=== PATIENT | male | born 1975 | race Caucasian/White ===

== ENCOUNTER 2016-08-23 10:02 | Emergency (ER) ==
[2016-08-23 10:15] VITALS: BP 141/85; TEMP 98.2; BMI 27.8
--- NOTE | 2016-08-23 10:18 | ED.PDOC ---
General ED Provider: Dr. ANDRADE PRESSLEY-ER Chief Complaint: Hand Pain/Injury Stated Complaint: he slipped in the shower last night--his finger is swollen bruised and painful Time Seen by Physician: 10:05 Mode of Arrival: Walk-In Information Source: Other Exam Limitations: Other Primary Care Provider: ZECHARIAH BABIN Nursing and Triage Documentation Reviewed and Agree: Yes Musculoskeletal Complaint Exam - Hand/Wrist Complaint/Exam Location of Pain: Reports: Right, Digit #3 Mechanism of Injury: Reports: Trauma Onset/Duration: 24hrs Symptoms Are: Still present Onset of Pain: Reports: Immediate Initial Severity: Mild Current Severity: Mild Location: Reports: Discrete (right middle finger) Character: Reports: Dull, Aching Aggravating: Reports: Movement Associated Signs and Symptoms: Reports: Swelling, Bruising. Denies: Redness, Fever, Weakness, Numbness, Tingling Hand/Wrist Findings: Present: Swelling, Ecchymosis Tenderness: Present: Phalanx Compartment Syndrome Risk Factors: Present: Pain Differential Diagnoses: Contusion, Closed Fracture, Sprain, Strain Review of Systems - Review Of Systems Constitutional: Reports: No symptoms Eyes: Reports: No symptoms Ears, Nose, Mouth, Throat: Reports: No symptoms Respiratory: Reports: No symptoms Cardiac: Reports: No symptoms GI: Reports: No symptoms : Reports: No symptoms Musculoskeletal: Reports: Joint pain, Muscle pain Skin: Reports: No symptoms Neurological: Reports: No symptoms Endocrine: Reports: No symptoms Hematologic/Lymphatic: Reports: No symptoms All Other Systems: Reviewed and Negative Past Medical History - Past Medical History Previously Healthy: No Endocrine: Reports: None Cardiovascular: Reports: None Respiratory: Reports: None Hematological: Reports: None Gastrointestinal: Reports: None Genitourinary: Reports: None Neuro/Psych: Reports: None Musculoskeletal: Reports: None Cancer: Reports: None Other Pertinent Past Medical History: MODERATE MR, BEHAVIORAL DISORDER,ADHD, HERNIA - Surgical History General Surgical History: Reports: Cholecystectomy - Family History Family History: Reports: Unknown - Social History Smoking Status: Never smoker Hx Substance Use: No Alcohol Screening: None - Immunizations Tetanus Shot up to Date: Yes Physical Exam - Physical Exam Appearance: Well-appearing Pain Distress: Mild Eyes: KIT, EOMI, Conjunctiva clear ENT: Ears normal, Nose normal, Oropharynx normal Neck: Supple Respiratory: Airway patent, Breath sounds clear, Breath sounds equal, Respirations nonlabored Cardiovascular: RRR, Pulses normal, No rub, No murmur GI/: Soft, Nontender, No masses, Bowel sounds normal, No Organomegaly Musculoskeletal: Limited ROM Skin: Warm, Dry, Normal color Neurological: Sensation intact, Motor intact, Reflexes intact, Cranial nerves intact, Alert, Oriented Psychiatric: Affect appropriate, Mood appropriate Interpretation - Radiology Interpretation Radiology Interpretation By: ED Physician Radiology Results: Negative Critical Care Note - Critical Care Note Total Time (mins): 0 Course - Course Orders, Labs, Meds: Orders Category Date Time Status FINGER(S) RIGHT MIN 2V Stat RADS 08/23/16 10:12 Taken Vital Signs: Temp Pulse Resp BP Pulse Ox 08/23/16 10:03 98.2 F 104 H 20 141/85 H 98 Departure - Departure Time of Disposition: 10:25 Disposition: HOME SELF-CARE Discharge Problem: Contusion of finger Qualifiers: Encounter type: initial encounter Finger: middle finger Damage to nail status: without damage Laterality: right Qualifier Code: (S60.031A) Contusion of right middle finger without damage to nail, initial encounter Instructions: Contusion in Adults (ED) Condition: Good Pt referred to PMD for follow-up: Yes Additional Instructions: stay in splint for 3 days--tylenol for pain--if remains painful and swollen-- see pmd--may need ortho referral Allergies/Adverse Reactions: Allergies No Known Allergies Allergy (Verified 08/23/16 10:11) Home Medications: Ambulatory Orders Acetaminophen [Tylenol] 650 mg PO Q4HR PRN 06/05/15 Benztropine Mesylate [Cogentin] 0.25 mg PO DAILY 06/05/15 Bupropion HCl [Bupropion Xl] 150 mg PO BID 06/05/15 Clonazepam 0.5 mg PO DIRECTED 06/05/15 Clonazepam 1 mg PO DAILY 06/05/15 Olanzapine [Zyprexa] 20 mg PO BEDTIME 06/05/15 Disposition Discussed With: Patient, Other (snf staff)
--- NOTE | 2016-08-23 10:35 | DI ---
Exam: Three x-rays of the right third digit. Comparison: None available. Reason for exam: Trauma. FINDINGS: There is an obliquely oriented, minimally displaced fracture of the right third middle ph alanx. This is best seen on the lateral image. The joint spaces are relatively well maintained. M ild amount of soft tissue swelling is seen adjacent to the fracture site. Impression: Obliquely oriented, minimally displaced right middle phalanx fracture.
== END 2016-08-23 10:32 | disposition home or self-care (01) ==
LOC: ED 10:02
DX: S60.031A Contusion of right middle finger without damage to nail, initial encounter (principal); W18.2XXA Fall in (into) shower or empty bathtub, initial encounter
CPT/HCPCS: 99282

== ENCOUNTER 2023-12-21 17:16 | Inpatient (IN) ==
[2023-12-21] MEDS ORDERED: LACTATED RINGERS 1,000 ML IV ONE (18:27)
--- NOTE | 2023-12-21 18:34 | ED.PDOC ---
General ED Provider: Dr. LARA BLAND MD Chief Complaint: Shortness of Air Stated Complaint: 48 yo WM from a [place] [facility] brought in by presidential support specialist for labored breathing. Staff have noticed some noisy breathing and wheezing today. No report of fever at home but temp was 100.5 in the ER. "He always have a cough" but worse. No vomiting or diarrhea. Some developmental delayed and have choked in the past. He is on a regular diet but "meat has to be chopped up". No sick contacts at the [place] [facility]. Unk if any COVID vaccination. Doesn't smoke Time Seen by Provider: 12/21/23 18:07 Mode of Arrival: Walk-In Information Source: Patient and Family Exam Limitations: Physical impairment Primary Care Provider: GOPI MONTOYA Referred to ED by: Other (Engineering Operator) Nursing and Triage Documentation Reviewed and Agree: Yes Does Patient Take Opioids?: No What is Opioid Naive?: *Opioid Naive implies the patient is not already taking opioids or not chronically receiving opioids on a daily basis. *PRN dosing is not "usually" associated with tolerance. *Patients are at higher risk of over-sedation and aspiration. What is Opioid Tolerant?: *Opioid Tolerance implies less than the expected response to an opioid. *Acquired tolerance is defined by the patient taking 60mg of oral morphine daily (or equianalgesic dose of another opioid) for 1 week or more. *Often associated with chronic pain. *May take more than usual dose to achieve desired pain control. Review of Systems Review Of Systems Constitutional: Reports Fever and Malaise Eyes: Reports No symptoms Ears, Nose, Mouth, Throat: Denies Ear discharge or Nose discharge Respiratory: Reports Cough, Shortness of Breath and Wheezing Cardiac: Denies Chest pain GI: Denies Abdominal pain : Denies Hematuria Musculoskeletal: Reports Back pain Skin: Reports No symptoms Neurological: Reports Cognitive dysfunction; Denies Emotional problems or Headache [facility] Medical History Adult ADHD F90.9 - Attention-deficit hyperactivity disorder, unspecified type (ICD-10) Disruptive behavior disorder F91.9 - Conduct disorder, unspecified (ICD-10) Surgical History H/O hernia repair Z98.890 - Other specified postprocedural states (ICD-10) Z87.19 - Personal history of other diseases of the digestive system (ICD-10) Physical Exam Physical Exam Appearance: Reports Ill-appearing, No pain distress and Well-nourished Ill-appearing: Moderate Pain Distress: None Eyes: Reports KIT and EOMI ENT: Reports Ears normal and Nose normal Neck: Supple Respiratory: Reports Airway patent, Breath sounds diminished, Airway obstructed and Wheezes Cardiovascular: Reports RRR, Pulses normal, No rub and No murmur GI/: Reports Soft, Nontender, No masses and Bowel sounds normal Musculoskeletal: Reports Normal strength, ROM intact and Edema Skin: Reports Warm, Dry and Normal color Neurological: Reports Sensation intact, Motor intact and Alert Interpretation Radiology Interpretation Radiology Interpretation By: Radiologist Exam Interpreted: CXR Xray Comments: pleural effusion and LLL pneumonia Course Course 12/21/23 18:40 12/21/23 18:40 Orders, Labs, Meds: Lab Review 12/21/23 12/21/23 18:40 19:18 WBC 15.12 H RBC 3.83 L Hgb 10.6 L Hct 33.8 L MCV 88.3 MCH 27.7 MCHC 31.4 L RDW Coeff of Tommy 13.9 Plt Count 506 H Immature Gran % (Auto) 1.0 Neut % (Auto) 74.8 Lymph % (Auto) 12.2 Crosby % (Auto) 11.0 H Eos % (Auto) 0.7 Baso % (Auto) 0.3 Neut # (Auto) 11.3 H Lymph # (Auto) 1.9 Crosby # (Auto) 1.7 Eos # (Auto) 0.1 Baso # (Auto) 0.1 Immature Gran # (Auto) 0.2 Sodium 134.1 L Potassium 4.23 Chloride 95.8 L Carbon Dioxide 32.2 H Anion Gap 10.33 BUN 11.9 Creatinine 0.61 Estimated GFR (MDRD) 142.00 BUN/Creatinine Ratio 19.50 Glucose 142.6 H Lactic Acid 0.74 Calcium 7.98 L Total Bilirubin 0.81 AST 175.2 H ALT 169.1 H Alkaline Phosphatase 165.9 H NT-Pro-B Natriuret Pep 550 H Total Protein 7.01 Albumin 3.58 Globulin 3.43 Albumin/Globulin Ratio 1.04 Procalcitonin 0.28 H Influ A Molecular Assay Negative by naat Influ B Molecular Assay Negative by naat SARS CoV-2 RNA Rapid JAYNA Negative Orders Category Date Time Status Saline Lock [ED IV/MEDIPORT/POWERPORT] .ONCE EMERGENCY 12/21/23 18:25 Active BLOOD CULTURE Stat LAB 12/21/23 18:40 Received CBC W/ AUTO DIFF Stat LAB 12/21/23 18:40 Completed CMP [COMPREHENSIVE METABOLIC PANEL] Stat LAB 12/21/23 18:40 Completed COVID [SARS COV-2 RNA RAPID JAYNA] Stat LAB 12/21/23 19:18 Completed FLU A & B MOLECULAR [FLU A/B MOLECULAR] Stat LAB 12/21/23 19:18 Completed LACTIC ACID Stat LAB 12/21/23 18:40 Completed NT-PROBNP Stat LAB 12/21/23 18:40 Completed PROCALCITONIN Stat LAB 12/21/23 18:40 Completed 0.9 % Sodium Chloride [Saline Flush] Meds 12/21/23 18:25 Active 1 syr IVF PRN PRN Ipratropium/Albuterol Neb [Duoneb] Meds 12/21/23 18:25 Discontinued 3 ml NEB ONCE ONE Methylprednisolone Sod Succ/Pf [Solu-Medrol 40 mg] Meds 12/21/23 18:27 Discontinued 80 mg IVP ONCE ONE Ringers Lactated Solution [Lactated Ringers] 1,000 ml Meds 12/21/23 18:27 Active IV 125 mls/hr CHEST, 1V AP ONLY Stat RADS 12/21/23 18:25 Completed Medications Generic Name Dose Route Start Last Admin Trade Name Freq PRN Reason Stop Dose Admin Lactated Ringer's 1,000 mls @ 125 mls/hr 12/21/23 18:27 Lactated Ringers IV 12/22/23 02:26 .Q8H ONE Sodium Chloride 1 syr 12/21/23 18:25 0.9% Sodium Chloride 10 Ml Disp.Syrin IVF PRN PRN To flush IV Discontinued Medications Generic Name Dose Route Start Last Admin Trade Name Freq PRN Reason Stop Dose Admin Albuterol/Ipratropium 3 ml 12/21/23 18:25 12/21/23 18:37 Ipratropium/Albuterol Vial.Neb NEB 12/21/23 18:26 3 ml ONCE ONE Administration Methylprednisolone Sodium Succinate 80 mg 12/21/23 18:27 12/21/23 18:57 Methylprednisolone Sod Succ/Pf 40 Mg/Ml Vial IVP 12/21/23 18:28 80 mg ONCE ONE Administration Vital Signs: Temp Pulse Resp BP Pulse Ox 12/21/23 18:03 100.5 F H 100 22 H 141/70 H 91 L Discharge Plan Discharge Patient Disposition: ADMITTED INPATIENT Discharge Problem: Pneumonia Did you review [place] LABOR AND DELIVERY for ALL controlled substances?: Not Applicable ED Provider: LARA BLAND Condition: Stable Physician Progress Note: Sat is 95% on oxygen, 2L?BNC and discussed with hospitalist Kristian and will admit
[2023-12-21] MEDS: DUONEB NEB ONE (18:37)
[2023-12-21 18:53] LABS: BASOPHILS # (AUTO) 0.1 K/uL (0-0.2); BASOPHILS % (AUTO) 0.3 % (0.0-3.0); EOSINOPHILS # (AUTO) 0.1 K/ul (0.0-0.7); EOSINOPHILS % (AUTO) 0.7 % (0.0-7.0); HEMATOCRIT 33.8 % (42.0-52.0); HEMOGLOBIN 10.6 g/dl (14.0-18.0); IMMATURE GRANULOCYTE # (AUTO) 0.2 (0.0-1.0); LYMPHOCYTES # (AUTO) 1.9 K/uL (0.60-3.4); LYMPHOCYTES % (AUTO) 12.2 (10.0-50.0); MEAN CORPUSCULAR HEMOGLOBIN 27.7 pg (27.0-31.0); MEAN CORPUSCULAR HGB CONC 31.4 (31.8-35.4); MEAN CORPUSCULAR VOLUME 88.3 fl (80.0-94.0); MONOCYTES # (AUTO) 1.7 K/uL (0.4-2.0); NEUTROPHILS # (AUTO) 11.3 K/ul (2.0-6.9); NEUTROPHILS % (AUTO) 74.8 % (42.2-75.2); PLATELET COUNT 506 10^3/uL (140-440); RDW COEFFICIENT OF VARIATION 13.9 % (11.6-14.8); RED BLOOD COUNT 3.83 10^6/ul (4.70-6.10); WHITE BLOOD COUNT 15.12 K/ul (4.2-10.2)
[2023-12-21] MEDS: SOLU-MEDROL 40 MG IVP ONE (18:57)
[2023-12-21 19:03] LABS: ALANINE AMINOTRANSFERASE 169.1 U/L (0-50); ALBUMIN 3.58 g/dL (3.5-5.0); ALKALINE PHOSPHATASE 165.9 U/L (38-126); ASPARTATE AMINO TRANSFERASE 175.2 U/L (17-59); BILIRUBIN,TOTAL 0.81 mg/dL (0.2-1.3); BLOOD UREA NITROGEN 11.9 mg/dL (9-20); CALCIUM 7.98 mg/dL (8.4-10.2); CARBON DIOXIDE 32.2 mmol/L (22-30.0); CHLORIDE 95.8 mmol/L (98-107); CREATININE 0.61 mg/dL (0.60-1.10); GLUCOSE 142.6 mg/dL (74-106); POTASSIUM 4.23 mmol/L (3.5-5.1); SODIUM 134.1 mmol/L (134.5-145); TOTAL PROTEIN 7.01 g/dL (6.3-8.2)
--- NOTE | 2023-12-21 19:38 | DI ---
EXAM: CHEST X-RAY ONE VIEW. HISTORY: Dyspnea. COMPARISON: 07/06/2022 chest x-ray. FINDINGS: There are increased patchy opacities present within both lung bases and blunting of the co stophrenic angles, left greater than right. The cardiac silhouette is enlarged. There is no pulmonary edema or pneumothorax. No change in the o sseous structures. IMPRESSION: Small right and small to moderate left pleural effusions with adjacent pneumonia. Cardiomegaly.
[2023-12-21 19:43] LABS: MOLECULAR FLU A NEGATIVE BY NAAT (NEGATIVE); MOLECULAR FLU B NEGATIVE BY NAAT (NEGATIVE); SARS COV-2 RNA RAPID NAAT NEGATIVE (NEGATIVE)
[2023-12-21] MEDS ORDERED: TYLENOL PO PRN (20:02)
[2023-12-21] MEDS ORDERED: ZOFRAN 4 MG/2 ML IVP PRN (20:02)
[2023-12-21] MEDS: ZOSYN 3.375 GM 3.375 GM in SODIUM CHLORIDE 100ML 100 ML IV ONE (20:05)
[2023-12-21] MEDS: ALBUTEROL 0.083% NEB NEB SCH (21:11)
[2023-12-21] MEDS: ZITHROMAX 500 MG in SODIUM CHLORIDE 250 ML IV SCH (22:22)
[2023-12-21] MEDS: KLONOPIN PO PRN (22:26)
[2023-12-21] MEDS: HALDOL PO SCH (22:26)
[2023-12-21] MEDS: ZYPREXA PO SCH (22:26)
[2023-12-21] MEDS: ZOCOR PO SCH (22:27)
[2023-12-21] MEDS: INDERAL PO SCH (22:27)
[2023-12-21 23:07] VITALS: BMI 28.3
[2023-12-22] MEDS: DUONEB NEB SCH (00:49)
[2023-12-22] MEDS: ZOSYN 4.5 GM 4.5 GM in SODIUM CHLORIDE 100ML 100 ML IV SCH ×2 (01:51→08:14)
[2023-12-22] MEDS: SOLU-MEDROL 40 MG IVP SCH (02:40)
[2023-12-22 05:49] LABS: BASOPHILS % (AUTO) 0.1 % (0.0-3.0); HEMATOCRIT 34.8 % (42.0-52.0); HEMOGLOBIN 10.7 g/dl (14.0-18.0); IMMATURE GRANULOCYTE # (AUTO) 0.1 (0.0-1.0); IMMATURE GRANULOCYTE % (AUTO) 0.9 % (0.0-5.0); LYMPHOCYTES # (AUTO) 0.9 K/uL (0.60-3.4); LYMPHOCYTES % (AUTO) 9.5 (10.0-50.0); MEAN CORPUSCULAR HEMOGLOBIN 27.4 pg (27.0-31.0); MEAN CORPUSCULAR HGB CONC 30.7 (31.8-35.4); MONOCYTES # (AUTO) 0.3 K/uL (0.4-2.0); MONOCYTES % (AUTO) 3.7 (0-10); NEUTROPHILS # (AUTO) 7.8 K/ul (2.0-6.9); NEUTROPHILS % (AUTO) 85.8 % (42.2-75.2); PLATELET COUNT 490 10^3/uL (140-440); RED BLOOD COUNT 3.91 10^6/ul (4.70-6.10); WHITE BLOOD COUNT 9.13 K/ul (4.2-10.2)
[2023-12-22 06:08] LABS: ALANINE AMINOTRANSFERASE 151.8 U/L (0-50); ALBUMIN 3.54 g/dL (3.5-5.0); ALKALINE PHOSPHATASE 152.7 U/L (38-126); ASPARTATE AMINO TRANSFERASE 95.4 U/L (17-59); BILIRUBIN,TOTAL 0.51 mg/dL (0.2-1.3); BLOOD UREA NITROGEN 10.6 mg/dL (9-20); CALCIUM 8.17 mg/dL (8.4-10.2); CARBON DIOXIDE 31.5 mmol/L (22-30.0); CHLORIDE 101.9 mmol/L (98-107); CREATININE 0.57 mg/dL (0.60-1.10); GLUCOSE 161.1 mg/dL (74-106); POTASSIUM 4.13 mmol/L (3.5-5.1); SODIUM 140.6 mmol/L (134.5-145); TOTAL PROTEIN 6.99 g/dL (6.3-8.2)
[2023-12-22] MEDS ORDERED: COGENTIN PO SCH (09:00)
[2023-12-22] MEDS: HALDOL PO SCH (09:19)
[2023-12-22] MEDS: KLONOPIN PO SCH (09:20)
[2023-12-22] MEDS: PAXIL PO SCH (09:20)
[2023-12-22] MEDS: LOVENOX SUBCUT SCH (09:21)
[2023-12-22] MEDS: NON-FORMULARY MEDICATION (Terbinafine Hcl 250 mg tablet) PO SCH (09:30)
--- NOTE | 2023-12-22 11:25 | PCM ---
Date of Service Date Seen by Provider: 12/22/23 Time Seen by Provider: 08:40 Admit Day/Time Admission Date: 12/21/23 Admission Time: 19:55 Reason for Admission Chief Complaint: PNEUMONIA Hospital Provider Hospital Provider: VIDHYA HOPE PA-C, [facility] [place] Primary Care Physician Primary Care Physician: GOPI MONTOYA History of Present Illness History of Present Illness: Patient is a 48 year old male from local [facility] with pmhx of aspiration, intellectual disability, hyperlipidemia who presents to ER with worsening SOB and cough. Caregiver states patient is an "A+ patient" and will tell you everything is fine when it isn't. But that he has been having a productive cough and noticeably SOB for last few days. He has hx of aspiration but she states he doesn't have issues swallowing, he just eats way too fast and has to be paced. He has choked 3 times in past due to this but not in past 6 months. In ER CXR showed bilateral pneumonia, wbc count elevated, procal mildly elevated, and patient requried 2L. He was given zosyn and azithromycin. He was admitted to med surg. Patient this morning is alert and interactive. Wearing 2L. Caregiver at bedside. Patient is very excited to be drinking his "sodey". He denies complaints. Case Discussed With Case Discussed With: Patient's case was discussed with the ER Physicians, Dr. Azevedo. [facility] Medical History Adult ADHD F90.9 - Attention-deficit hyperactivity disorder, unspecified type (ICD-10) Disruptive behavior disorder Mild MR F91.9 - Conduct disorder, unspecified (ICD-10) Surgical History H/O hernia repair Inguinal 12/17/14 Z98.890 - Other specified postprocedural states (ICD-10) Z87.19 - Personal history of other diseases of the digestive system (ICD-10) Family History FATHER Cancer Lung cancer Mother Cancer Allergies Allergies Allergy/AdvReac Type Severity Reaction Status Date / Time No Known Allergies Allergy Verified 07/06/22 19:12 Current Medications Home Medications acetaminophen 325 mg tablet (Tylenol) 650 mg PO Q4HR PRN Analgesia 06/05/15 [History Confirmed 12/21/23 Last Taken Unknown] olanzapine 20 mg tablet (Zyprexa) 20 mg PO BEDTIME 06/05/15 [History Confirmed 12/21/23 Last Taken Unknown] simvastatin 10 mg tablet 10 mg PO QHS 07/03/22 [History Confirmed 12/21/23 Last Taken Unknown] clonazepam 1 mg tablet 1 mg PO TID 12/21/23 [History Confirmed 12/21/23 Last Taken Unknown] divalproex 500 mg tablet,extended release 24 hr 500 mg PO BID 12/21/23 [History Confirmed 12/21/23 Last Taken Unknown] haloperidol 1 mg tablet 1 mg PO DAILY 12/21/23 [History Confirmed 12/21/23 Last Taken Unknown] haloperidol 2 mg tablet 2 mg PO BEDTIME 12/21/23 [History Confirmed 12/21/23 Last Taken Unknown] paroxetine HCl 30 mg tablet 30 mg PO DAILY 12/21/23 [History Confirmed 12/21/23 Last Taken Unknown] propranolol 10 mg tablet 10 mg PO 2XD 12/21/23 [History Confirmed 12/21/23 Last Taken Unknown] terbinafine HCl 250 mg tablet 250 mg PO DAILY 12/21/23 [History Confirmed 12/21/23 Last Taken Unknown] Home Acetaminophen (Acetaminophen 325 Mg Tablet) 650 mg PO Q4H PRN PRN Reason: Mild Pain Albuterol/Ipratropium (Ipratropium/Albuterol Vial.Neb) 3 ml NEB RTQ6H HARRY Last Admin: 12/22/23 11:25 Dose: 3 ml Clonazepam (Clonazepam 0.5 Mg Tablet) 1 mg PO TID HARRY Last Admin: 12/22/23 09:20 Dose: 1 mg Enoxaparin Sodium (Enoxaparin Sodium 40 Mg/0.4 Ml Syr) 40 mg SUBCUT DAILY [facility] Last Admin: 12/22/23 09:21 Dose: 40 mg Haloperidol (Haloperidol 0.5 Mg Tablet) 2 mg PO BEDTIME HARRY Last Admin: 12/21/23 22:26 Dose: 2 mg Haloperidol (Haloperidol 0.5 Mg Tablet) 1 mg PO DAILY [facility] Last Admin: 12/22/23 09:19 Dose: 1 mg Azithromycin 500 mg/ Sodium (Chloride) 250 mls @ 83 mls/hr IV BEDTIME HARRY Stop: 12/24/23 20:29 CEFTRIAXONE/D5W 1 GM PREMIX (Rocephin 1 Gm/50 Ml D5w) 1 gm in 50 mls @ 100 mls/hr IV DAILY HARRY Stop: 12/25/23 12:59 Last Admin: 12/22/23 13:58 Dose: 100 mls/hr Doxycycline Hyclate 100 mg/ (Sodium Chloride) 100 mls @ 50 mls/hr IV Q12HR HARRY Stop: 12/25/23 11:29 Last Admin: 12/22/23 11:35 Dose: 50 mls/hr Methylprednisolone Sodium Succinate (Methylprednisolone Sod Succ/Pf 40 Mg/Ml Vial) 40 mg IVP Q8H HARRY Last Admin: 12/22/23 12:03 Dose: 40 mg Non-Formulary Medication (Divalproex) 500 mg PO BID [facility] Last Admin: 12/22/23 09:18 Dose: 500 mg Non-Formulary Medication (Terbinafine Hcl) 250 mg PO DAILY [facility] Last Admin: 12/22/23 09:30 Dose: Not Given Olanzapine (Olanzapine 10 Mg Tablet) 20 mg PO BEDTIME [facility] Last Admin: 12/21/23 22:26 Dose: 20 mg Ondansetron HCl (Ondansetron Hcl/Pf 4 Mg/2 Ml Sdv) 4 mg IVP Q6H PRN PRN Reason: Nausea / Vomiting Paroxetine HCl (Paroxetine Hcl 20 Mg Tablet) 30 mg PO DAILY [facility] Last Admin: 12/22/23 09:20 Dose: 30 mg Propranolol HCl (Propranolol Hcl 20 Mg Tablet) 10 mg PO 2XD HARRY Last Admin: 12/22/23 09:28 Dose: 10 mg Simvastatin (Simvastatin 10 Mg Tablet) 10 mg PO BEDTIME [facility] Last Admin: 12/21/23 22:27 Dose: 10 mg Sodium Chloride (0.9% Sodium Chloride 10 Ml Disp.Syrin) 1 syr IVF Q8H HARRY Last Admin: 12/22/23 13:57 Dose: 1 syr Discontinued Medications Albuterol Sulfate (Albuterol Sulfate 0.083% Vial.Neb) 2.5 mg NEB RTQID [facility] Last Admin: 12/21/23 21:11 Dose: Not Given Albuterol/Ipratropium (Ipratropium/Albuterol Vial.Neb) 3 ml NEB ONCE ONE Stop: 12/21/23 18:26 Last Admin: 12/21/23 18:37 Dose: 3 ml Clonazepam (Clonazepam 0.5 Mg Tablet) 1 mg PO TID PRN PRN Reason: Anxiety Last Admin: 12/21/23 22:26 Dose: 1 mg Piperacillin Sod/Tazobactam (Sod 3.375 gm/ Sodium Chloride) 100 mls @ 200 mls/hr IV ONCE ONE Stop: 12/21/23 20:17 Last Admin: 12/21/23 20:05 Dose: 200 mls/hr Piperacillin Sod/Tazobactam (Sod 4.5 gm/ Sodium Chloride) 100 mls @ 200 mls/hr IV Q6H HARRY Stop: 12/25/23 01:59 Last Admin: 12/22/23 01:51 Dose: 200 mls/hr Azithromycin 500 mg/ Sodium (Chloride) 250 mls @ 83 mls/hr IV Q24H [facility] Stop: 12/24/23 20:29 Last Admin: 12/21/23 22:22 Dose: 83 mls/hr Piperacillin Sod/Tazobactam (Sod 4.5 gm/ Sodium Chloride) 100 mls @ 200 mls/hr IV Q6HR [facility] Stop: 12/25/23 01:59 Last Admin: 12/22/23 08:14 Dose: 200 mls/hr Methylprednisolone Sodium Succinate (Methylprednisolone Sod Succ/Pf 40 Mg/Ml Vial) 80 mg IVP ONCE ONE Stop: 12/21/23 18:28 Last Admin: 12/21/23 18:57 Dose: 80 mg Sodium Chloride (0.9% Sodium Chloride 10 Ml Disp.Syrin) 1 syr IVF PRN PRN PRN Reason: To flush IV Last Admin: 12/21/23 22:23 Dose: 1 syr Opioid Naive vs. Tolerant Does Patient Take Opioids?: No Is Patient Opioid Naive?: Yes What is Opioid Naive?: *Opioid Naive implies the patient is not already taking opioids or not chronically receiving opioids on a daily basis. *PRN dosing is not "usually" associated with tolerance. *Patients are at higher risk of over-sedation and aspiration. Is Patient Opioid Tolerant?: No What is Opioid Tolerant?: *Opioid Tolerance implies less than the expected response to an opioid. *Acquired tolerance is defined by the patient taking 60mg of oral morphine daily (or equianalgesic dose of another opioid) for 1 week or more. *Often associated with chronic pain. *May take more than usual dose to achieve desired pain control. Review of Systems Constitutional: Reports Fever Cardiovascular: Denies Chest pain or Edema Respiratory: Reports Cough and Shortness of air Gastrointestinal: Denies Nausea, Vomiting, Diarrhea, Abdominal pain or Melena Genitourinary: Denies Dysuria or Hematuria Dermatologic: Denies Rashes Physical examination Most Recent Vital Signs: Most Recent Vital Signs Temperature 98.3 F 12/22/23 10:00 Temperature Source Temporal Artery Scan 12/22/23 10:00 Temperature Source Temporal Artery Scan 12/21/23 18:03 Pulse Rate 101 H 12/22/23 10:00 Respiratory Rate 24 H 12/22/23 10:00 Blood Pressure 114/80 12/22/23 10:00 Blood Pressure Mean 91 12/22/23 10:00 Blood Pressure Right Arm 115/77 12/21/23 21:27 Blood Pressure Location Right Arm 12/22/23 10:00 Blood Pressure Position Supine 12/22/23 10:00 O2 Sat by Pulse Oximetry 94 L 12/22/23 10:20 Oxygen Delivery Method Nasal Cannula 12/22/23 10:20 Oxygen Flow Rate 2 12/22/23 10:20 Height 5 ft 5 in 12/21/23 21:27 Weight 77.2 kg 12/21/23 21:27 Telemetry Type Remote Telemetry 12/22/23 07:00 Telemetry Monitoring Continues 12/22/23 07:00 Telemetry Heart Rate 80 12/22/23 07:00 Telemetry SPO2 94 12/22/23 07:00 EKG TN Interval 0.15 12/22/23 07:00 EKG QRS Interval 0.07 12/22/23 07:00 Telemetry Strip Reading SR 12/22/23 07:00 Appearance: Positive No Apparent Distress and Other (+Alert, interactive ) Skin: Positive [place], Warm, Good Turgor and Good Color; Negative Rashes HEENT: Positive Normocephalic and Atraumatic Neck: Positive Supple and Midline Trachea Chest/Lungs: Positive Clear to Auscultation Bilaterally; Negative Rales, Rhonci or Wheezes Heart: Positive RRR GI/: Positive Soft, Nontender, Bowel Sounds Normal and No Distention Extremities: Negative Edema Neurological: Positive Cranial Nerves Intact and Alert Additional Findings: +intellectually delayed but very interactive and in good spirits. Labs This Visit Labs This Visit: Labs This Visit 12/21/23 12/21/23 12/22/23 18:40 19:18 05:38 WBC 15.12 H 9.13 D RBC 3.83 L 3.91 L Hgb 10.6 L 10.7 L Hct 33.8 L 34.8 L MCV 88.3 89.0 MCH 27.7 27.4 MCHC 31.4 L 30.7 L RDW Coeff of Tommy 13.9 14.0 Plt Count 506 H 490 H Immature Gran % (Auto) 1.0 0.9 Neut % (Auto) 74.8 85.8 H Lymph % (Auto) 12.2 9.5 L [place] % (Auto) 11.0 H 3.7 Eos % (Auto) 0.7 0.0 Baso % (Auto) 0.3 0.1 Neut # (Auto) 11.3 H 7.8 H Lymph # (Auto) 1.9 0.9 [place] # (Auto) 1.7 0.3 L Eos # (Auto) 0.1 0.0 Baso # (Auto) 0.1 0.0 Immature Gran # (Auto) 0.2 0.1 Sodium 134.1 L 140.6 Potassium 4.23 4.13 Chloride 95.8 L 101.9 Carbon Dioxide 32.2 H 31.5 H Anion Gap 10.33 11.33 BUN 11.9 10.6 Creatinine 0.61 0.57 L Estimated GFR (MDRD) 142.00 154.00 BUN/Creatinine Ratio 19.50 18.59 Glucose 142.6 H 161.1 H Lactic Acid 0.74 Calcium 7.98 L 8.17 L Total Bilirubin 0.81 0.51 AST 175.2 H 95.4 H D ALT 169.1 H 151.8 H Alkaline Phosphatase 165.9 H 152.7 H NT-Pro-B Natriuret Pep 550 H Total Protein 7.01 6.99 Albumin 3.58 3.54 Globulin 3.43 3.45 Albumin/Globulin Ratio 1.04 1.02 Procalcitonin 0.28 H Influ A Molecular Assay Negative by naat Influ B Molecular Assay Negative by naat SARS CoV-2 RNA Rapid JAYNA Negative Microbiology This Visit 12/21/23 18:40 Blood Blood Culture - Preliminary Imaging Imaging: EXAM: CHEST X-RAY ONE VIEW. HISTORY: Dyspnea. COMPARISON: 07/06/2022 chest x-ray. FINDINGS: There are increased patchy opacities present within both lung bases and blunting of the costophrenic angles, left greater than right. The cardiac silhouette is enlarged. There is no pulmonary edema or pneumothorax. No change in the osseous structures. IMPRESSION: Small right and small to moderate left pleural effusions with adj acent pneumonia. Cardiomegaly. Review Statement Review Statement: I have independently reviewed and interpreted the labs/EKGs/imaging that were ordered by the ER provider. I have reviewed all outside records that are available currently in our EMR including imaging/notes/labs from previous visits. Plan Plan: 1. Community acquired pneumonia, bilateral - Rocephin and doxy, solumedrol, duonebs, RT consult, wean O2 when able. Legionella, strep pneumo, and MRSA ordered. 1 blood culture positive for gram positive cocci, likely contaminant, will follow. 2. Acute hypoxic respiratory failure in setting of CAP - Plan as above 3. Behavior disorder - Cont home meds 4. Hyperlipidemia - Cont home meds 5. Pleural effusions - noted on CXR. Check echo. DVT Prophylaxis: Ambulation Time Spent: Greater than 80 minutes spent with patient, 50% of the time spent with this patient was devoted to counseling and coordination of care. [facility] minutes spent discussing advance care planning. Admit to: Inpatient Discussed Plan of Care with Dr. Josefina Mora. Medications Medication Orders: Medications Ordered Category Date Time Status 0.9 % Sodium Chloride [Saline Flush] Meds 12/22/23 05:00 Active 1 syr IVF Q8H Acetaminophen [Tylenol] Meds 12/21/23 20:02 Active 650 mg PO Q4H PRN Azithromycin Inj [Zithromax] 500 mg Meds 12/22/23 21:00 Active 0.9 % Sodium Chloride [Sodium Chloride] 250 ml IV BEDTIME Ceftriaxone/D5w 1 gm Premix [Rocephin 1 gm/50 ml D5w] Meds 12/22/23 13:00 Active 1 gm in 50 ml IV DAILY Clonazepam [Klonopin] Meds 12/22/23 09:00 Active 1 mg PO TID Doxycycline Hyclate Inj [Doxy-100] 100 mg Meds 12/22/23 11:30 Active 0.9 % Sodium Chloride [Sodium Chloride 100Ml] 100 ml IV Q12HR Enoxaparin Sodium [Lovenox] Meds 12/22/23 09:00 Active 40 mg SUBCUT DAILY Haloperidol [Haldol] Meds 12/22/23 09:00 Active 1 mg PO DAILY Haloperidol [Haldol] Meds 12/21/23 21:00 Active 2 mg PO BEDTIME Ipratropium/Albuterol Neb [Duoneb] Meds 12/22/23 00:00 Active 3 ml NEB RTQ6H Methylprednisolone Sod Succ/Pf [Solu-Medrol 40 mg] Meds 12/22/23 03:00 Active 40 mg IVP Q8H Olanzapine [Zyprexa] Meds 12/21/23 21:00 Active 20 mg PO BEDTIME Ondansetron HCl/Pf [Zofran 4 mg/2 ml] Meds 12/21/23 20:02 Active 4 mg IVP Q6H PRN Paroxetine HCl [Paxil] Meds 12/22/23 09:00 Active 30 mg PO DAILY Propranolol HCl [Inderal] Meds 12/21/23 21:00 Active 10 mg PO 2XD Simvastatin [Zocor] Meds 12/21/23 21:00 Active 10 mg PO BEDTIME divalproex Meds 12/21/23 21:00 Active 500 mg PO BID terbinafine HCl Meds 12/22/23 09:00 Active 250 mg PO DAILY
[2023-12-22] MEDS: DOXY-100 100 MG in SODIUM CHLORIDE 100ML 100 ML IV SCH (11:35)
[2023-12-22] MEDS: ROCEPHIN 1 GM/50 ML D5W 1 GM/50 ML BAG IV SCH (13:58)
[2023-12-22] MEDS ORDERED: ZITHROMAX 500 MG in SODIUM CHLORIDE 250 ML IV SCH (21:00)
[2023-12-23 05:40] LABS: BASOPHILS % (AUTO) 0.1 % (0.0-3.0); EOSINOPHILS % (AUTO) 0.1 % (0.0-7.0); HEMATOCRIT 36.6 % (42.0-52.0); IMMATURE GRANULOCYTE # (AUTO) 0.2 (0.0-1.0); LYMPHOCYTES # (AUTO) 1.5 K/uL (0.60-3.4); LYMPHOCYTES % (AUTO) 10.4 (10.0-50.0); MEAN CORPUSCULAR HEMOGLOBIN 27.6 pg (27.0-31.0); MEAN CORPUSCULAR HGB CONC 30.1 (31.8-35.4); MONOCYTES # (AUTO) 0.7 K/uL (0.4-2.0); MONOCYTES % (AUTO) 5.1 (0-10); NEUTROPHILS # (AUTO) 12.2 K/ul (2.0-6.9); NEUTROPHILS % (AUTO) 83.3 % (42.2-75.2); PLATELET COUNT 515 10^3/uL (140-440); RDW COEFFICIENT OF VARIATION 14.1 % (11.6-14.8); RED BLOOD COUNT 3.98 10^6/ul (4.70-6.10)
[2023-12-23 05:48] LABS: ALANINE AMINOTRANSFERASE 228.2 U/L (0-50); ALBUMIN 3.58 g/dL (3.5-5.0); ALKALINE PHOSPHATASE 142.8 U/L (38-126); ASPARTATE AMINO TRANSFERASE 122.1 U/L (17-59); BILIRUBIN,TOTAL 0.22 mg/dL (0.2-1.3); BLOOD UREA NITROGEN 11.8 mg/dL (9-20); CALCIUM 8.48 mg/dL (8.4-10.2); CARBON DIOXIDE 31.8 mmol/L (22-30.0); CHLORIDE 102.6 mmol/L (98-107); CREATININE 0.66 mg/dL (0.60-1.10); GLUCOSE 166.8 mg/dL (74-106); POTASSIUM 4.2 mmol/L (3.5-5.1); SODIUM 142.7 mmol/L (134.5-145); TOTAL PROTEIN 7.14 g/dL (6.3-8.2)
--- NOTE | 2023-12-23 10:49 | PCM.PROG ---
Date/Time Seen Date Seen by Provider: 12/23/23 Time Seen by Provider: 08:30 Provider [facility] Chief Complaint Chief Complaint: PNEUMONIA Subjective Subjective: Patient is at the bedside. Has showered and feeling better. Has no complaints. Caregiver at bedside updated on plan of care. Objective Appearance: Positive No Apparent Distress and Other (+alert, interactive ) Chest/Lungs: Positive Clear to Auscultation Bilaterally; Negative Rales, Rhonci or Wheezes Heart: Positive RRR GI/: Positive Soft, Nontender, Bowel Sounds Normal and No Distention Neurological: Positive Cranial Nerves Intact and Alert Vital Signs Vital Signs: Vital Signs: Last 24 Hours 12/22/23 13:00 12/22/23 14:00 12/22/23 14:50 Temperature 97.7 F Temperature Source Temporal Artery Scan Pulse Rate 88 Respiratory Rate 20 Blood Pressure 112/76 Blood Pressure Mean 88 Blood Pressure Location Left Arm Blood Pressure Position Supine O2 Sat by Pulse Oximetry 95 96 Oxygen Delivery Method Room Air Nasal Cannula Oxygen Flow Rate 2 Telemetry Type Remote Telemetry Telemetry Monitoring Continues Telemetry Heart Rate 91 Telemetry SPO2 94 EKG DC Interval 0.15 EKG QRS Interval 0.08 Telemetry Strip Reading SR 12/22/23 17:54 12/22/23 19:00 12/22/23 20:00 Temperature 97.0 F L Temperature Source Temporal Artery Scan Pulse Rate 91 Respiratory Rate 18 Blood Pressure 115/78 Blood Pressure Mean 90 Blood Pressure Location Right Arm Blood Pressure Position Supine O2 Sat by Pulse Oximetry 93 L Oxygen Delivery Method Room Air Nasal Cannula Oxygen Flow Rate 1 Telemetry Type Remote Telemetry Telemetry Monitoring Continues Telemetry Heart Rate 84 Telemetry SPO2 EKG DC Interval 0.14 EKG QRS Interval 0.08 Telemetry Strip Reading SR 12/22/23 20:00 12/22/23 21:57 12/23/23 01:00 Temperature 97 F L Temperature Source Temporal Artery Scan Pulse Rate 84 Respiratory Rate 18 18 Blood Pressure 101/67 Blood Pressure Mean 78 Blood Pressure Location Right Arm Blood Pressure Position Supine O2 Sat by Pulse Oximetry 93 L Oxygen Delivery Method Nasal Cannula Nasal Cannula Oxygen Flow Rate 2 Telemetry Type Remote Telemetry Telemetry Monitoring Continues Telemetry Heart Rate Telemetry SPO2 EKG DC Interval 0.15 EKG QRS Interval 0.09 Telemetry Strip Reading SR 12/23/23 02:00 12/23/23 04:55 12/23/23 05:23 Temperature 96.9 F L Temperature Source Temporal Artery Scan Pulse Rate 69 77 Respiratory Rate 18 Blood Pressure 111/71 Blood Pressure Mean 84 Blood Pressure Location Left Arm Blood Pressure Position Supine O2 Sat by Pulse Oximetry 90 L 91 L 96 Oxygen Delivery Method Nasal Cannula Nasal Cannula Nasal Cannula Oxygen Flow Rate 2 2 2 Telemetry Type Telemetry Monitoring Telemetry Heart Rate Telemetry SPO2 EKG DC Interval EKG QRS Interval Telemetry Strip Reading 12/23/23 07:00 12/23/23 08:00 12/23/23 10:00 Temperature 97.6 F Temperature Source Temporal Artery Scan Pulse Rate 94 Respiratory Rate 20 Blood Pressure 126/76 Blood Pressure Mean 92 Blood Pressure Location Right Arm Blood Pressure Position Supine O2 Sat by Pulse Oximetry 96 Oxygen Delivery Method Nasal Cannula Nasal Cannula Oxygen Flow Rate 2 2 Telemetry Type Remote Telemetry Telemetry Monitoring Continues Telemetry Heart Rate 64 Telemetry SPO2 91 L EKG DC Interval 0.14 EKG QRS Interval 0.06 Telemetry Strip Reading SR Lab Results Lab Results: Lab Results: Last 24 Hours 12/23/23 05:22 WBC 14.60 H D RBC 3.98 L Hgb 11.0 L Hct 36.6 L MCV 92.0 MCH 27.6 MCHC 30.1 L RDW Coeff of Tommy 14.1 Plt Count 515 H Immature Gran % (Auto) 1.0 Neut % (Auto) 83.3 H Lymph % (Auto) 10.4 [place] % (Auto) 5.1 Eos % (Auto) 0.1 Baso % (Auto) 0.1 Neut # (Auto) 12.2 H Lymph # (Auto) 1.5 [place] # (Auto) 0.7 Eos # (Auto) 0.0 Baso # (Auto) 0.0 Immature Gran # (Auto) 0.2 Sodium 142.7 Potassium 4.20 Chloride 102.6 Carbon Dioxide 31.8 H Anion Gap 12.50 BUN 11.8 Creatinine 0.66 Estimated GFR (MDRD) 130.00 BUN/Creatinine Ratio 17.87 Glucose 166.8 H Calcium 8.48 Total Bilirubin 0.22 AST 122.1 H D ALT 228.2 H D Alkaline Phosphatase 142.8 H Total Protein 7.14 Albumin 3.58 Globulin 3.56 Albumin/Globulin Ratio 1.00 Procalcitonin 0.23 H Additional Comments Additional Comments: I have independently reviewed and interpreted the labs/EKGs/imaging ordered duri ng this hospital stay. I have reviewed outside records that are available in our EMR that pertain to medical stay including imaging/notes/labs from previous visits. Active Medications Active Medications: Medications Generic Name Dose Route Start Last Admin Trade Name Freq PRN Reason Stop Dose Admin Acetaminophen 650 mg 12/21/23 20:02 Acetaminophen 325 Mg Tablet PO Q4H PRN Mild Pain Albuterol/Ipratropium 3 ml 12/22/23 00:00 12/23/23 04:56 Ipratropium/Albuterol Vial.Neb NEB 3 ml RTQ6H HARRY Administration Clonazepam 1 mg 12/22/23 09:00 12/23/23 09:37 Clonazepam 0.5 Mg Tablet PO 1 mg TID HARRY Administration Enoxaparin Sodium 40 mg 12/22/23 09:00 12/23/23 09:36 Enoxaparin Sodium 40 Mg/0.4 Ml Syr SUBCUT 40 mg DAILY HARRY Administration Haloperidol 2 mg 12/21/23 21:00 12/22/23 20:44 Haloperidol 0.5 Mg Tablet PO 2 mg BEDTIME HARRY Administration Haloperidol 1 mg 12/22/23 09:00 12/23/23 09:38 Haloperidol 0.5 Mg Tablet PO 1 mg DAILY HARRY Administration CEFTRIAXONE/D5W 1 GM PREMIX 1 gm in 50 mls @ 100 mls/hr 12/22/23 13:00 12/23/23 09:36 Rocephin 1 Gm/50 Ml D5w IV 12/25/23 12:59 100 mls/hr DAILY HARRY Administration Doxycycline Hyclate 100 mg/ 100 mls @ 50 mls/hr 12/22/23 11:30 12/22/23 20:47 Sodium Chloride IV 12/25/23 11:29 50 mls/hr Q12HR HARRY Administration Methylprednisolone Sodium Succinate 40 mg 12/22/23 03:00 12/23/23 03:55 Methylprednisolone Sod Succ/Pf 40 Mg/Ml Vial IVP 40 mg Q8H HARRY Administration Non-Formulary Medication 500 mg 12/21/23 21:00 12/23/23 09:32 Divalproex PO 500 mg BID HARRY Administration Non-Formulary Medication 250 mg 12/22/23 09:00 12/23/23 09:39 Terbinafine Hcl PO Not Given DAILY HARRY Olanzapine 20 mg 12/21/23 21:00 12/22/23 20:44 Olanzapine 10 Mg Tablet PO 20 mg BEDTIME HARRY Administration Ondansetron HCl 4 mg 12/21/23 20:02 Ondansetron Hcl/Pf 4 Mg/2 Ml Sdv IVP Q6H PRN Nausea / Vomiting Paroxetine HCl 30 mg 12/22/23 09:00 12/23/23 09:37 Paroxetine Hcl 20 Mg Tablet PO 30 mg DAILY HARRY Administration Propranolol HCl 10 mg 12/21/23 21:00 12/23/23 09:37 Propranolol Hcl 20 Mg Tablet PO 10 mg 2XD HARRY Administration Simvastatin 10 mg 12/21/23 21:00 12/22/23 20:45 Simvastatin 10 Mg Tablet PO 10 mg BEDTIME HARRY Administration Sodium Chloride 1 syr 12/22/23 05:00 12/23/23 05:01 0.9% Sodium Chloride 10 Ml Disp.Syrin IVF 1 syr Q8H HARRY Administration Plan Plan: 1. Community acquired pneumonia, bilateral - Rocephin and doxy, solumedrol, duonebs, RT consult, wean O2 when able. Legionella, strep pneumo, and MRSA ordered. 2/4 blood culture positive for gram positive cocci, likely contaminant, will follow. Repeat blood cultures ordered this morning. 2. Acute hypoxic respiratory failure in setting of CAP - Plan as above 3. Behavior disorder - Cont home meds 4. Hyperlipidemia - Cont home meds 5. Pleural effusions - noted on CXR. Check echo. 6. Transaminitis, mild - Check US RUQ, likely in setting of infection DVT Prophylaxis: Ambulation Dispo: Likely dc tomorrow Review Statement Review Statement: I have personally discussed and reviewed the patient's visit/currently labs/imaging/decision making with Dr. Mora, my supervising attending. Greater that 50 minutes spent with patient, 50% of the time spent with this patient was devoted to counseling and coordination of care.
--- NOTE | 2023-12-23 14:47 | ECHO2D ---
Date of Exam: 12/23/2023 Ordering Physician: KWESI BUSH/ PCP SHERRY Room #: 122 Reason for Echo: PLEURAL EFFUSIONS, CARDIOMEGALY, HYPERLIPIDEMIA M-Mode Normal Adult Results LV Dimensions Normal Adult Results AoV Opening excursions >1.6 >1.6 LVEDD-base- 3.5-5.8 4.5 Ao root dimensions 2.0-3.7 3.3 LVESD-base- 3.1-4.6 L. Atrium dimensions 1.9-3.8 4.4 Post. Wall thickness 0.8-1.1 1.2 IV septum (thickness) 0.7-1.2 1.2 Post. Wall excursion 0.72-1.3 NORMAL Septal motion NORMAL Systolic motion R. Ventricular cavity 1.5-2.0 NORMAL LVEF 60% 74% Paradoxical septal wall motion NORMAL 2-D : 2-D M Mode Echocardiogram was performed using apical four chamber and left parasternal long and short axis views. Mitral, tricuspid and aortic valves appear to be normal. Contractility of the left ventricle seems to be normal, so is the cavity size. Enlarged left atrial cavity size. Aortic root appears to be normal. There is no pericardial effusion. There is no thrombus noted in the left ventricle or left atrial cavity. M-MODE: MV: NORMAL AV: NORMAL TV: NORMAL PV: CHAMBER SIZE: ENLARGED LEFT ATRIAL CAVITY WALL MOTION: NORMAL PERICARDIUM: NORMAL INTERPRETATION: 1. BORDERLINE LEFT VENTRICLE HYPERTROPHY WITH ENLARGED LEFT ATRIAL CAVITY 2. NORMAL VALVES 3. NORMAL LEFT VENTRICLE SIZE AND LEFT VENTRICLE CONTRACTILITY MTDD
[2023-12-24 05:16] LABS: BASOPHILS % (AUTO) 0.2 % (0.0-3.0); EOSINOPHILS # (AUTO) 0.1 K/ul (0.0-0.7); EOSINOPHILS % (AUTO) 0.4 % (0.0-7.0); HEMATOCRIT 37.1 % (42.0-52.0); IMMATURE GRANULOCYTE # (AUTO) 0.2 (0.0-1.0); IMMATURE GRANULOCYTE % (AUTO) 1.2 % (0.0-5.0); LYMPHOCYTES # (AUTO) 3.6 K/uL (0.60-3.4); LYMPHOCYTES % (AUTO) 28.8 (10.0-50.0); MEAN CORPUSCULAR HEMOGLOBIN 27.7 pg (27.0-31.0); MEAN CORPUSCULAR HGB CONC 29.6 (31.8-35.4); MEAN CORPUSCULAR VOLUME 93.5 fl (80.0-94.0); MONOCYTES # (AUTO) 0.9 K/uL (0.4-2.0); MONOCYTES % (AUTO) 7.1 (0-10); NEUTROPHILS # (AUTO) 7.7 K/ul (2.0-6.9); NEUTROPHILS % (AUTO) 62.3 % (42.2-75.2); PLATELET COUNT 504 10^3/uL (140-440); RDW COEFFICIENT OF VARIATION 14.2 % (11.6-14.8); RED BLOOD COUNT 3.97 10^6/ul (4.70-6.10); WHITE BLOOD COUNT 12.39 K/ul (4.2-10.2)
[2023-12-24 05:32] LABS: ALANINE AMINOTRANSFERASE 196.3 U/L (0-50); ALBUMIN 3.14 g/dL (3.5-5.0); ALKALINE PHOSPHATASE 110.9 U/L (38-126); ASPARTATE AMINO TRANSFERASE 85.2 U/L (17-59); BILIRUBIN,TOTAL 0.15 mg/dL (0.2-1.3); BLOOD UREA NITROGEN 14.5 mg/dL (9-20); CALCIUM 8.11 mg/dL (8.4-10.2); CARBON DIOXIDE 34.1 mmol/L (22-30.0); CHLORIDE 105.3 mmol/L (98-107); CREATININE 0.72 mg/dL (0.60-1.10); GLUCOSE 126.4 mg/dL (74-106); POTASSIUM 3.78 mmol/L (3.5-5.1); SODIUM 144.6 mmol/L (134.5-145); TOTAL PROTEIN 6.37 g/dL (6.3-8.2)
--- NOTE | 2023-12-24 09:23 | US ---
EXAM: ABDOMINAL ULTRASOUND LIMITED HISTORY: Elevated liver enzymes COMPARISON: None TECHNIQUE: Sonographic and limited Doppler evaluation of the right upper quadrant was performed. FINDINGS: The liver is increased in echogenicity and measures 11.4 cm. The portal vein is patent. The gallbladder demonstrates no stones or sludge. The gallbladder wall measures 0.2 cm in thickness. Common bile duct is unremarkable and measures 0.4 cm in diameter. The pancreas is unremarkable in appearance. Right kidney is normal in appearance without obstructive uropathy. IMPRESSION: Increased echogenicity of the liver suggestive of hepatic steatosis.
--- NOTE | 2023-12-24 10:39 | DCSUM ---
Admission Date Admission Date: 12/21/23 Discharge Date Discharge Date: 12/24/23 Admission Diagnosis Admission Diagnosis: 1. Community acquired pneumonia, bilateral 2. Acute hypoxic respiratory failure in setting of CAP Discharge Diagnosis Discharge Diagnosis: 1. Community acquired pneumonia, bilateral 2. Acute hypoxic respiratory failure in setting of CAP - resolved 3. Behavior disorder - Cont home meds 4. Hyperlipidemia - Cont home meds 5. Pleural effusions 6. Transaminitis, mild - improved Hospital Provider Hospital Provider: VIDHYA HOPE [facility]-C, [facility] Primary Care Physician Primary Care Physician: GOPI MONTOYA Summary of History and Physical Summary of History and Physical: Patient is a 48 year old male from local [facility] home with pmhx of aspiration, intellectual disability, hyperlipidemia who presents to ER with worsening SOB and cough. Caregiver states patient is an "A+ patient" and will tell you everything is fine when it isn't. But that he has been having a productive cough and noticeably SOB for last few days. He has hx of aspiration but she states he doesn't have issues swallowing, he just eats way too fast and has to be paced. He has choked 3 times in past due to this but not in past 6 months. In ER CXR showed bilateral pneumonia, wbc count elevated, procal mildly elevated, and sandra ent requried 2L. He was given zosyn and azithromycin. He was admitted to med surg. Patient this morning is alert and interactive. Wearing 2L. Caregiver at bedside. Patient is very excited to be drinking his "sodey". He denies complaints. Hospital Course Subjective: Patient treated with rocephin and doxy and steroids. Steroids stopped on 12/22. Patient overall did very well. He was weaned to RA. He is at his baseline. His initial blood cultures grew staph haemolyticus in 2 bottles, deemed a contaminant. Repeat blood cultures all negative so far. Liver US done due to mild elevated liver enzymes, which have improved. Showed fatty liver otherwise unremarkable. Echo performed due to pleural effusions on CXR, reportedly unremarkable. Will discharge on augmentin and doxy for 2 more days. Caregiver at bedside. Appearance: Pleasant, No Apparent Distress and Alert HEENT: MMM CVS: No Murmur Abdomen: Soft, Non-Tender and No Distention Respiratory: No Accessory Muscle Use Extremities: No Edema Vital Signs: Most Recent Vital Signs Temperature 97.2 F L 12/24/23 05:22 Temperature Source Temporal Artery Scan 12/24/23 05:22 Temperature Source Temporal Artery Scan 12/21/23 18:03 Pulse Rate 62 12/24/23 05:22 Respiratory Rate 18 12/24/23 05:22 Blood Pressure 114/67 12/24/23 05:22 Blood Pressure Mean 82 12/24/23 05:22 Blood Pressure Right Arm 115/77 12/21/23 21:27 Blood Pressure Location Right Arm 12/24/23 05:22 Blood Pressure Position Supine 12/24/23 05:22 O2 Sat by Pulse Oximetry 96 12/24/23 05:22 Oxygen Delivery Method Room Air 12/24/23 05:22 Oxygen Flow Rate 1 12/24/23 05:01 Height 5 ft 5 in 12/21/23 21:27 Weight 77.2 kg 12/21/23 21:27 Telemetry Type Remote Telemetry 12/24/23 07:00 Telemetry Monitoring Started 12/24/23 07:00 Telemetry Heart Rate 67 12/24/23 07:00 Telemetry SPO2 94 12/24/23 07:00 EKG VA Interval 0.13 12/24/23 07:00 EKG QRS Interval 0.10 12/24/23 07:00 Telemetry Strip Reading NSR 12/24/23 07:00 Imaging: EXAM: CHEST X-RAY ONE VIEW. HISTORY: Dyspnea. COMPARISON: 07/06/2022 chest x-ray. FINDINGS: There are increased patchy opacities present within both lung bases and blunting of the costophrenic angles, left greater than right. The cardiac silhouette is enlarged. There is no pulmonary edema or pneumothorax. No change in the osseous structures. IMPRESSION: Small right and small to moderate left pleural effusions with adjacent pneumonia. Cardiomegaly. EXAM: ABDOMINAL ULTRASOUND LIMITED HISTORY: Elevated liver enzymes COMPARISON: None TECHNIQUE: Sonographic and limited Doppler evaluation of the right upper quadrant was performed. FINDINGS: The liver is increased in echogenicity and measures 11.4 cm. The portal vein is patent. The gallbladder demonstrates no stones or sludge. The gallbladder wall measures 0.2 cm in thickness. Common bile duct is unremarkable and measures 0.4 cm in diameter. The pancreas is unremarkable in appearance. Right kidney is normal in appearance without obstructive uropathy. IMPRESSION: Increased echogenicity of the liver suggestive of hepatic steatosis. Date of Exam: 12/23/2023Ordering Physician: KWESI BUSH/ PCP SHERRY Room #: 122 Reason for Echo: PLEURAL EFFUSIONS, CARDIOMEGALY, HYPERLIPIDEMIA M-Mode Normal Adult Results LV Dimensions Normal Adult Results AoV Opening excursions >1.6 >1.6 LVEDD-base- 3.5-5.8 4.5 Ao root dimensions 2.0-3.7 3.3 LVESD-base- 3.1-4.6 L. Atrium dimensions 1.9-3.8 4.4 Post. Wall thickness 0.8-1.1 1.2 IV septum (thickness) 0.7-1.2 1.2 Post. Wall excursion 0.72-1.3 NORMAL Septal motion NORMAL Systolic motion R. Ventricular cavity 1.5-2.0 NORMAL LVEF 60% 74% Paradoxical septal wall motion NORMAL 2-D : 2-D M Mode Echocardiogram was performed using apical four chamber and left parasternal long and short axis views. Mitral, tricuspid and aortic valves appear to be normal. Contractility of the left ventricle seems to be normal, so is the cavity size. Enlarged left atrial cavity size. Aortic root appears to be normal. There is no pericardial effusion. There is no thrombus noted in the left ventricle or left atrial cavity. M-MODE: MV: NORMAL AV: NORMAL TV: NORMAL PV: CHAMBER SIZE: ENLARGED LEFT ATRIAL CAVITY WALL MOTION: NORMAL PERICARDIUM: NORMAL INTERPRETATION: 1. BORDERLINE LEFT VENTRICLE HYPERTROPHY WITH ENLARGED LEFT ATRIAL CAVITY 2. NORMAL VALVES 3. NORMAL LEFT VENTRICLE SIZE AND LEFT VENTRICLE CONTRACTILITY Lab Results Last 24 Hours: 12/24/23 05:12 WBC 12.39 H RBC 3.97 L Hgb 11.0 L Hct 37.1 L MCV 93.5 MCH 27.7 MCHC 29.6 L RDW Coeff of Tommy 14.2 Plt Count 504 H Immature Gran % (Auto) 1.2 Neut % (Auto) 62.3 Lymph % (Auto) 28.8 Taylor % (Auto) 7.1 Eos % (Auto) 0.4 Baso % (Auto) 0.2 Neut # (Auto) 7.7 H Lymph # (Auto) 3.6 H Taylor # (Auto) 0.9 Eos # (Auto) 0.1 Baso # (Auto) 0.0 Immature Gran # (Auto) 0.2 Sodium 144.6 Potassium 3.78 Chloride 105.3 Carbon Dioxide 34.1 H Anion Gap 8.98 BUN 14.5 Creatinine 0.72 Estimated GFR (MDRD) 118.00 BUN/Creatinine Ratio 20.13 Glucose 126.4 H Calcium 8.11 L Total Bilirubin 0.15 L AST 85.2 H D ALT 196.3 H D Alkaline Phosphatase 110.9 D Total Protein 6.37 Albumin 3.14 L Globulin 3.23 Albumin/Globulin Ratio 0.97 Procalcitonin 0.17 H Discharge Instructions Discharge Planning: Discharge Planning > [address] Josefina Mora. Discharge Medications: Medications at Discharge (Home Meds & RX) Discharge Plan Discharge Discharge Orders: Discharge Patient (ONCE); Ordered 12/24/23 Ordered By: VIDHYA HOPE Activity Restrictions/Additional Instructions: DISCHARGE TO HOME DX: PNEUMONIA FINISH ANTIBIOTICS ACTIVITY: TOLERATED FOLLOW FACILITY FLUID INTAKE LIMITATIONS Instructions: Community Acquired Pneumonia (DC) Patient Disposition: HOME SELF-CARE Prescriptions: New doxycycline hyclate 100 mg capsule 100 mg PO BID 2 Days Qty: 4 0RF Rx Instructions: Start 12/24 amoxicillin-pot clavulanate 875-125 mg tablet 1 tab PO BID 2 Days Qty: 4 0RF Rx Instructions: start 12/24 Continued acetaminophen [Tylenol] 325 MG tablet 650 mg PO Q4HR PRN (Reason: Analgesia) olanzapine [Zyprexa] 20 MG tablet 20 mg PO BEDTIME paroxetine HCl 30 mg tablet 30 mg PO DAILY divalproex 500 mg tablet extended release 24 hr 500 mg PO BID haloperidol 2 mg tablet 2 mg PO BEDTIME clonazepam 1 mg tablet 1 mg PO TID propranolol 10 mg tablet 10 mg PO 2XD haloperidol 1 mg tablet 1 mg PO DAILY terbinafine HCl 250 mg tablet 250 mg PO DAILY simvastatin 10 mg tablet 10 mg PO QHS Did you review [place] [employer]ING for ALL controlled substances?: Not Applicable Discussed opioids are addictive and Narcan is available by prescription or from pharmacy.: No Condition: Stable Referrals: GOPI MONTOYA [Primary Care Provider] - 12/30/23 9:15 am
[2023-12-24 11:34] VITALS: BP 104/69; PULSE 83; RESP 18; TEMP 96.8
[2023-12-24 14:18] LABS: SPECIMEN SOURCE Urine (.); STEP PNEUMO ORGANISM ID Not indicated. (.); STREP PNEUMO AG Negative (Negative); STREP PNEUMO BODY FLUID CULT Not indicated. (.)
[2023-12-31 14:17] LABS: AEROBIC + ANAEROB SUSC Final report (.); AEROBIC + ANAEROB SUSC RES 1 Actinomyces neuii (.); BACT ID RESULT 1 Actinomyces neuii (.); BACTERIA IDENTIFICATION Final report (.)
== END 2023-12-24 13:15 | disposition home or self-care (01) | DRG 193 ==
LOC: ED 17:16 → MEDSURG B 20:59
PROVIDERS: ADMIT Hospitalist; ATTEND Physician Assistant
DX: J18.9 Pneumonia, unspecified organism; R06.02 Shortness of breath; J90 Pleural effusion, not elsewhere classified; M54.9 Dorsalgia, unspecified; E78.5 Hyperlipidemia, unspecified; J96.01 Acute respiratory failure with hypoxia; R05.9 Cough, unspecified; R74.01 Elevation of levels of liver transaminase levels; R06.2 Wheezing; F69 Unspecified disorder of adult personality and behavior; R62.50 Unspecified lack of expected normal physiological development in childhood

== ENCOUNTER 2023-12-27 09:28 | Inpatient (IN) ==
[2023-12-27] MEDS: DUONEB NEB ONE ×2 (09:53→10:39)
--- NOTE | 2023-12-27 09:58 | ED.PDOC ---
General ED Provider: Dr. LARA BLAND MD Chief Complaint: Respiratory Complaint Stated Complaint: 48 yo WM who resides at [facility] and was just DC 3 days ago after a few days of hospitalization for CAP in both lungs. He had told staff of some chest pain this AM and VS taken showed sat of 95% on RA, 140/80, temp of 98 and fell on the floor when staff when outside to call someone. He denied any injuries from the fall. He have a slight cough and was wheezing after the fall. No reports of any fever. Normally ambulates well. Hx of choking from eating too fast and had choking episodes in the past. He has a history of developmental delayed, behavior problem, hyperlipidemia, previous aspiration and CAP. Recent admit showed he had some pleural effusion and ECHO reported unremarkable. Doesn't smoke Time Seen by Provider: 12/27/23 09:40 Mode of Arrival: Ambulance Information Source: Patient and Other ([place] staff) Exam Limitations: Physical impairment and Language barrier Primary Care Provider: GOPI MONTOYA Referred to ED by: Other ([facility] ) Seen Within Last 72 Hours for Same Complaint By: In-Patient Facility Nursing and Triage Documentation Reviewed and Agree: Yes Does Patient Take Opioids?: No What is Opioid Naive?: *Opioid Naive implies the patient is not already taking opioids or not chronically receiving opioids on a daily basis. *PRN dosing is not "usually" associated with tolerance. *Patients are at higher risk of over-sedation and aspiration. What is Opioid Tolerant?: *Opioid Tolerance implies less than the expected response to an opioid. *Acquired tolerance is defined by the patient taking 60mg of oral morphine daily (or equianalgesic dose of another opioid) for 1 week or more. *Often associated with chronic pain. *May take more than usual dose to achieve desired pain control. Review of Systems Review Of Systems Constitutional: Denies Chills or Fever Eyes: Reports No symptoms Ears, Nose, Mouth, Throat: Reports Nose discharge Respiratory: Reports Cough, Shortness of Breath and Wheezing Cardiac: Reports Chest pain GI: Denies Abdominal pain, Diarrhea or Vomiting : Denies Dysuria or Hematuria Musculoskeletal: Denies Back pain, Joint pain or Joint swelling Skin: Reports No symptoms Neurological: Reports Cognitive dysfunction; Denies Anxiety, Depressed or Headache [facility] History Adult ADHD F90.9 - Attention-deficit hyperactivity disorder, unspecified type (ICD-10) Disruptive behavior disorder Mild MR F91.9 - Conduct disorder, unspecified (ICD-10) Family History FATHER Cancer Lung cancer Mother Cancer Surgical History H/O hernia repair Inguinal 12/17/14 Z98.890 - Other specified postprocedural states (ICD-10) Z87.19 - Personal history of other diseases of the digestive system (ICD-10) Physical Exam Physical Exam Appearance: Reports No pain distress and Well-nourished Ill-appearing: Mild Pain Distress: None Eyes: Reports EOMI ENT: Reports Nose normal and Oropharynx normal Neck: Nonsupple Respiratory: Reports Airway patent, Breath sounds diminished, Crackles and Wheezes (Minimal ) Cardiovascular: Reports RRR, Pulses normal, No rub and No murmur GI/: Reports Soft, Nontender, No masses and Bowel sounds normal Musculoskeletal: Reports Normal strength, ROM intact, No edema and No calf tenderness Skin: Reports Dry, Normal color and Pale Neurological: Reports Motor intact and Alert; Denies Focal Deficit Psychiatric: Reports Mood appropriate; Denies Anxious or Depressed Course Course 12/27/23 10:00 12/27/23 10:00 Orders, Labs, Meds: Lab Review 12/27/23 12/27/23 10:00 10:10 WBC 28.01 H D RBC 4.08 L Hgb 11.6 L Hct 36.6 L MCV 89.7 MCH 28.4 MCHC 31.7 L RDW Coeff of Tommy 14.4 Plt Count 481 H Immature Gran % (Auto) 3.9 Neut % (Auto) 81.6 H Lymph % (Auto) 5.7 L Sampson % (Auto) 8.6 Eos % (Auto) 0.1 Baso % (Auto) 0.1 Neut # (Auto) 22.8 H Lymph # (Auto) 1.6 Sampson # (Auto) 2.4 H Eos # (Auto) 0.0 Baso # (Auto) 0.0 Immature Gran # (Auto) 1.1 H Sodium 132.6 L Potassium 4.47 Chloride 99.5 Carbon Dioxide 23.9 Anion Gap 13.67 BUN 14.9 Creatinine 0.80 Estimated GFR (MDRD) 104.00 BUN/Creatinine Ratio 18.62 Glucose 137.9 H Lactic Acid 1.78 Calcium 8.04 L Magnesium 2.42 H Total Bilirubin 1.07 AST 28.2 ALT 65.2 H Alkaline Phosphatase 99.0 Troponin I < 0.012 NT-Pro-B Natriuret Pep 564 H Total Protein 6.86 Albumin 3.54 Globulin 3.32 Albumin/Globulin Ratio 1.06 Procalcitonin 0.35 H SARS CoV-2 RNA Rapid JAYNA Negative Orders Category Date Time Status ADMIT PATIENT INPATIENT .TO MEDSURG (NON-MONITORED ADMISSION 12/27/23 12:16 Ordered BED) EKG-(ED ONLY) Stat CARDIO 12/27/23 09:49 Completed NEBULIZER TREATMENT Stat CARDIO 12/27/23 10:42 Completed NPO REMINDER: IMAGING ONCE CARE 12/27/23 11:03 Active Saline Lock [ED IV/MEDIPORT/POWERPORT] .ONCE EMERGENCY 12/27/23 09:50 Active BLOOD CULTURE (ED ONLY) Stat LAB 12/27/23 10:58 Received CBC W/ AUTO DIFF Stat LAB 12/27/23 10:00 Completed CMP [COMPREHENSIVE METABOLIC PANEL] Stat LAB 12/27/23 10:00 Completed COVID [SARS COV-2 RNA RAPID JAYNA] Stat LAB 12/27/23 10:10 Completed LACTIC ACID Stat LAB 12/27/23 10:00 Completed MAGNESIUM Stat LAB 12/27/23 10:00 Completed NT-PROBNP(ED) Stat LAB 12/27/23 10:00 Completed PROCALCITONIN Stat LAB 12/27/23 10:00 Completed TROPONIN I Stat LAB 12/27/23 10:00 Completed 0.9 % Sodium Chloride [Saline Flush] Meds 12/27/23 09:50 Active 1 syr IVF PRN PRN Albuterol Sulfate 0.083% Neb [Albuterol 0.083% Neb] Meds 12/27/23 10:42 Active 5 mg NEB Q1-2H PRN Iohexol [Omnipaque 350 mg/ml 100Ml] Meds 12/27/23 11:17 Discontinued 100 ml IVP ONCE ONE Ipratropium/Albuterol Neb [Duoneb] Meds 12/27/23 09:51 Discontinued 3 ml NEB .STK-MED ONE Ipratropium/Albuterol Neb [Duoneb] Meds 12/27/23 09:50 Discontinued 3 ml NEB ONCE ONE Levofloxacin/D5w [Levaquin 500 mg/100 ml D5w] Meds 12/27/23 10:34 Discontinued 500 mg in 100 ml IV ONCE CHEST, 1V AP ONLY Stat RADS 12/27/23 09:[address] CHEST W/CONTRAST Stat RADS 12/27/23 11:03 Completed Medications Generic Name Dose Route Start Last Admin Trade Name Freq PRN Reason Stop Dose Admin Albuterol Sulfate 5 mg 12/27/23 10:42 12/27/23 10:52 Albuterol Sulfate 0.083% Vial.Neb NEB 5 mg Q1-2H PRN Administration Asthma Sodium Chloride 1 syr 12/27/23 09:50 0.9% Sodium Chloride 10 Ml Disp.Syrin IVF PRN PRN To flush IV Discontinued Medications Generic Name Dose Route Start Last Admin Trade Name Freq PRN Reason Stop Dose Admin Albuterol/Ipratropium 3 ml 12/27/23 09:50 12/27/23 09:53 Ipratropium/Albuterol Vial.Neb NEB 12/27/23 09:51 3 ml ONCE ONE Administration Levofloxacin/Dextrose 500 mg in 100 mls @ 100 mls/hr 12/27/23 10:34 Levaquin 500 Mg/100 Ml D5w IV 12/27/23 11:33 ONCE ONE Iohexol 100 ml 12/27/23 11:17 12/27/23 11:25 Iohexol 350 Mg/Ml 100ml IVP 12/27/23 11:18 100 ml ONCE ONE Administration Vital Signs: Temp Pulse Resp BP Pulse Ox 12/27/23 09:45 101.8 F H 114 H 24 H 115/62 95 Discharge Plan Discharge Patient Disposition: ADMITTED INPATIENT Discharge Problem: Dyspnea and respiratory abnormalities Did you review [place] [employer]LL[place] NURSE for ALL controlled substances?: Not Applicable ED Provider: LARA BLAND Condition: Fair Physician Progress Note: Discussed with Jean Carlos Maldonado and she wanted a CT scan of chest. This was done and relayed to her. Will Full Admit. Breathing has improved and not toxic. He wants to go home.
[2023-12-27 10:28] LABS: BASOPHILS % (AUTO) 0.1 % (0.0-3.0); EOSINOPHILS % (AUTO) 0.1 % (0.0-7.0); HEMATOCRIT 36.6 % (42.0-52.0); HEMOGLOBIN 11.6 g/dl (14.0-18.0); IMMATURE GRANULOCYTE # (AUTO) 1.1 (0.0-1.0); IMMATURE GRANULOCYTE % (AUTO) 3.9 % (0.0-5.0); LYMPHOCYTES # (AUTO) 1.6 K/uL (0.60-3.4); LYMPHOCYTES % (AUTO) 5.7 (10.0-50.0); MEAN CORPUSCULAR HEMOGLOBIN 28.4 pg (27.0-31.0); MEAN CORPUSCULAR HGB CONC 31.7 (31.8-35.4); MEAN CORPUSCULAR VOLUME 89.7 fl (80.0-94.0); MONOCYTES # (AUTO) 2.4 K/uL (0.4-2.0); MONOCYTES % (AUTO) 8.6 (0-10); NEUTROPHILS # (AUTO) 22.8 K/ul (2.0-6.9); NEUTROPHILS % (AUTO) 81.6 % (42.2-75.2); PLATELET COUNT 481 10^3/uL (140-440); RDW COEFFICIENT OF VARIATION 14.4 % (11.6-14.8); RED BLOOD COUNT 4.08 10^6/ul (4.70-6.10)
--- NOTE | 2023-12-27 10:28 | DI ---
EXAM: CHEST ONE VIEW, FRONTAL VIEW ONLY. HISTORY: Dyspnea. COMPARISON: 12/21/2023. FINDINGS: Heart size normal. There is persistent bibasilar consolidation, greater on the left. Sma ll effusions difficult to exclude. No new opacity. No pneumothorax. No acute osseous abnormality i dentified. IMPRESSION: Stable left greater than right basilar consolidation and possible pleural fluid, likely representing pneumonia.
[2023-12-27 10:29] LABS: WHITE BLOOD COUNT 28.01 K/ul (4.2-10.2)
[2023-12-27 10:44] LABS: SARS COV-2 RNA RAPID NAAT NEGATIVE (NEGATIVE)
[2023-12-27 10:46] LABS: ALANINE AMINOTRANSFERASE 65.2 U/L (0-50); ALBUMIN 3.54 g/dL (3.5-5.0); ASPARTATE AMINO TRANSFERASE 28.2 U/L (17-59); BILIRUBIN,TOTAL 1.07 mg/dL (0.2-1.3); BLOOD UREA NITROGEN 14.9 mg/dL (9-20); CALCIUM 8.04 mg/dL (8.4-10.2); CARBON DIOXIDE 23.9 mmol/L (22-30.0); CHLORIDE 99.5 mmol/L (98-107); GLUCOSE 137.9 mg/dL (74-106); MAGNESIUM 2.42 mg/dL (1.6-2.3); POTASSIUM 4.47 mmol/L (3.5-5.1); SODIUM 132.6 mmol/L (134.5-145); TOTAL PROTEIN 6.86 g/dL (6.3-8.2)
[2023-12-27] MEDS: ALBUTEROL 0.083% NEB NEB PRN (10:52)
[2023-12-27 10:54] LABS: TROPONIN I < 0.012 ng/ml (0.0000-0.120)
[2023-12-27] MEDS: OMNIPAQUE 350 MG/ML 100ML IVP ONE (11:25)
--- NOTE | 2023-12-27 12:09 | CT ---
EXAM: CHEST CT WITH INTRAVENOUS CONTRAST HISTORY: Shortness of breath. Pneumonia and pleural effusions. TECHNIQUE: CT acquisition of the chest from the thoracic inlet to the upper abdomen following IV cont rast administration. 2-D coronal and sagittal reformatted images were obtained from the axial source images. CT Dose Reduction Techniques Performed: Yes. COMPARISON: Correlation is made with chest radiograph from earlier same date. FINDINGS: Several enlarged mediastinal nodes. For example right paratracheal node at level of the sternal notc h measures 1.0 cm in short axis dimension. Right paratracheal node just above level of the azygos ve in 1.3 cm. Right subcarinal node 1.4 cm. No enlarged hilar or axillary nodes are identified. Mild cardiomegaly. Small pericardial effusion. Small to moderate bilateral dependent pleural effusions. Mild bilateral gynecomastia. Visualized portions of the upper abdomen included in this examination of the chest show no significan t abnormalities. Lung window images show hypoventilation. Moderate dependent and compressive atelectasis of both lowe r lobes. Mild subsegmental atelectasis of the right middle lobe and lingula. Mild heterogeneous roverto und-glass of the rest of the lungs. No pneumothorax. Bone window images show no significant lytic or sclerotic bone lesions. Mild serpentine scoliosis of the thoracic spine. IMPRESSION: 1. Cardiomegaly, small pericardial effusion, and small to moderate bilateral dependent pleural effus ions. 2. Hypoventilation with moderate dependent and compressive atelectasis of both lower lobes, and mild subsegmental atelectasis of the right middle lobe and lingula. Mild heterogeneous ground-glass of t he rest of the lungs, probably at least partially atelectasis due to the hypoventilation. Pneumonia and pulmonary edema cannot be excluded. 3. Several mildly enlarged mediastinal nodes, potentially secondary to old granulomatous disease or reactive. However, follow-up routine CT chest in 3 months is recommended to show stability and/or im provement. All CT scans are performed using dose optimization techniques as appropriate to the performed exam an d include at least one of the following: Automated exposure control, adjustment of the mA and/or kV according t o size, and the use of iterative reconstruction technique.
[2023-12-27] MEDS: LEVAQUIN 500 MG/100 ML D5W 500 MG/100 ML BAG IV ONE (12:51)
[2023-12-27] MEDS: DUONEB NEB SCH (14:08)
--- NOTE | 2023-12-27 15:16 | PCM ---
Date of Service Date Seen by Provider: 12/27/23 Admit Day/Time Admission Date: 12/27/23 Reason for Admission Chief Complaint: PLEURAL EFFUSION, HYPOXIA Hospital Provider Hospital Provider: BLANCA COLVIN, [facility] Primary Care Physician Primary Care Physician: GOPI MONTOYA History of Present Illness History of Present Illness: 48 yo male from local [facility] presented to the ER for shortness of breath. Patient has intellectual disability and is unable to provide HPI. Caregiver at bedside reports that he reported shortness of breath and chest pain. Checked his vital signs which were ok at the time. Went to call the nurse and when she came back inside he was on the ground with blue lips and fingers and lethargic. He was d/c from this facility on 12/23 for treatment of bilateral CAP with augmentin and doxycyline. Completed course of antibiotics. Fever was 101 on arrival here, with tachycardia and tachypnea. Sat was found to be 95% on 3L. Case Discussed With Case Discussed With: Patient's case was discussed with the ER Physicians, Dr. Azevedo. [facility] Medical History Adult ADHD F90.9 - Attention-deficit hyperactivity disorder, unspecified type (ICD-10) Disruptive behavior disorder Mild MR F91.9 - Conduct disorder, unspecified (ICD-10) Surgical History H/O hernia repair Inguinal 12/17/14 Z98.890 - Other specified postprocedural states (ICD-10) Z87.19 - Personal history of other diseases of the digestive system (ICD-10) Family History FATHER Cancer Lung cancer Mother Cancer Allergies Allergies Allergy/AdvReac Type Severity Reaction Status Date / Time No Known Allergies Allergy Verified 12/27/23 09:29 Current Medications Home Medications acetaminophen 325 mg tablet (Tylenol) 650 mg PO Q4HR PRN Analgesia 06/05/15 [History Confirmed 12/27/23 Last Taken Unknown] olanzapine 20 mg tablet (Zyprexa) 20 mg PO BEDTIME 06/05/15 [History Confirmed 12/27/23 Last Taken Unknown] simvastatin 10 mg tablet 10 mg PO QHS 07/03/22 [History Confirmed 12/27/23 Last Taken Unknown] clonazepam 1 mg tablet 1 mg PO TID 12/21/23 [History Confirmed 12/27/23 Last Taken Unknown] divalproex 500 mg tablet,extended release 24 hr 500 mg PO BID 12/21/23 [History Confirmed 12/27/23 Last Taken Unknown] haloperidol 1 mg tablet 1 mg PO DAILY 12/21/23 [History Confirmed 12/27/23 Last Taken Unknown] haloperidol 2 mg tablet 2 mg PO BEDTIME 12/21/23 [History Confirmed 12/27/23 Last Taken Unknown] paroxetine HCl 30 mg tablet 30 mg PO DAILY 12/21/23 [History Confirmed 12/27/23 Last Taken Unknown] propranolol 10 mg tablet 10 mg PO 2XD 12/21/23 [History Confirmed 12/27/23 Last Taken Unknown] terbinafine HCl 250 mg tablet 250 mg PO DAILY 12/21/23 [History Confirmed 12/27/23 Last Taken Unknown] Home Acetaminophen (Acetaminophen 325 Mg Tablet) 650 mg PO Q4H PRN PRN Reason: Mild Pain Albuterol Sulfate (Albuterol Sulfate 0.083% Vial.Neb) 5 mg NEB Q1-2H PRN PRN Reason: Asthma Last Admin: 12/27/23 10:52 Dose: 5 mg Albuterol/Ipratropium (Ipratropium/Albuterol Vial.Neb) 3 ml NEB RTQ4H HARRY Last Admin: 12/27/23 14:08 Dose: 3 ml Furosemide (Furosemide Inj 20 Mg/2 Ml Vial) 20 mg IVP ONCE STA Stop: 12/27/23 15:02 Levofloxacin/Dextrose (Levaquin 500 Mg/100 Ml D5w) 500 mg in 100 mls @ 100 mls/hr IV DAILY HARRY Stop: 12/31/23 08:59 Sodium Chloride (0.9% Sodium Chloride 10 Ml Disp.Syrin) 1 syr IVF PRN PRN PRN Reason: To flush IV Discontinued Medications Albuterol/Ipratropium (Ipratropium/Albuterol Vial.Neb) 3 ml NEB ONCE ONE Stop: 12/27/23 09:51 Last Admin: 12/27/23 09:53 Dose: 3 ml Levofloxacin/Dextrose (Levaquin 500 Mg/100 Ml D5w) 500 mg in 100 mls @ 100 mls/hr IV ONCE ONE Stop: 12/27/23 11:33 Last Admin: 12/27/23 12:51 Dose: 100 mls/hr Iohexol (Iohexol 350 Mg/Ml 100ml) 100 ml IVP ONCE ONE Stop: 12/27/23 11:18 Last Admin: 12/27/23 11:25 Dose: 100 ml Opioid Naive vs. Tolerant Does Patient Take Opioids?: No Is Patient Opioid Naive?: Yes What is Opioid Naive?: *Opioid Naive implies the patient is not already taking opioids or not chronically receiving opioids on a daily basis. *PRN dosing is not "usually" associated with tolerance. *Patients are at higher risk of over-sedation and aspiration. Is Patient Opioid Tolerant?: No What is Opioid Tolerant?: *Opioid Tolerance implies less than the expected response to an opioid. *Acquired tolerance is defined by the patient taking 60mg of oral morphine daily (or equianalgesic dose of another opioid) for 1 week or more. *Often associated with chronic pain. *May take more than usual dose to achieve desired pain control. Review of Systems Constitutional: Reports Fever Head: Reports Normocephalic Eyes: Reports No symptoms Ears: Reports No symptoms Nose: Reports No symptoms Mouth: Reports No symptoms Throat: Reports No symptoms Cardiovascular: Reports No symptoms Respiratory: Reports Shortness of air Gastrointestinal: Reports No symptoms Genitourinary: Reports No Symptoms Musculoskeletal: Reports No symptoms Endocrine: Reports No symptoms Hematology: Reports No symptoms Immunology: Reports No symptoms Neurological: Reports No symptoms Psychiatric: Reports No symptoms Physical examination Most Recent Vital Signs: Most Recent Vital Signs Temperature 101.8 F H 12/27/23 09:45 Temperature Source Temporal Artery Scan 12/27/23 09:45 Pulse Rate 114 H 12/27/23 09:45 Respiratory Rate 24 H 12/27/23 09:45 Blood Pressure 115/62 12/27/23 09:45 O2 Sat by Pulse Oximetry 95 12/27/23 09:45 Oxygen Delivery Method Nasal Cannula 12/27/23 14:13 Oxygen Flow Rate 3 12/27/23 14:13 Height 5 ft 5 in 12/27/23 09:45 Weight 76.2 kg 12/27/23 09:45 Telemetry Heart Rate 85 12/24/23 13:00 Telemetry SPO2 100 12/24/23 13:00 Appearance: Positive No Apparent Distress Skin: Positive Warm and Good Turgor HEENT: Positive Normocephalic and Atraumatic Neck: Positive Supple and Midline Trachea Chest/Lungs: Positive Symmetrical With Equal Breath Sounds and Clear to Auscultation Bilaterally (Diminished) Heart: Positive RRR and Pulses Normal GI/: Positive Soft, Nontender, Bowel Sounds Normal and No Distention Musculoskeletal: Positive Not Examined Extremities: Positive Intact Peripheral Pulses, Stable Joints Without Laxity and Good ROM in All Joints Neurological: Positive Sensation Intact, Motor intact, Alert and Oriented (to person and place, at baseline) Psychiatric: Positive Not Examined Labs This Visit Labs This Visit: Labs This Visit 12/27/23 12/27/23 10:00 10:10 WBC 28.01 H D RBC 4.08 L Hgb 11.6 L Hct 36.6 L MCV 89.7 MCH 28.4 MCHC 31.7 L RDW Coeff of Tommy 14.4 Plt Count 481 H Immature Gran % (Auto) 3.9 Neut % (Auto) 81.6 H Lymph % (Auto) 5.7 L [place] % (Auto) 8.6 Eos % (Auto) 0.1 Baso % (Auto) 0.1 Neut # (Auto) 22.8 H Lymph # (Auto) 1.6 [place] # (Auto) 2.4 H Eos # (Auto) 0.0 Baso # (Auto) 0.0 Immature Gran # (Auto) 1.1 H Sodium 132.6 L Potassium 4.47 Chloride 99.5 Carbon Dioxide 23.9 Anion Gap 13.67 BUN 14.9 Creatinine 0.80 Estimated GFR (MDRD) 104.00 BUN/Creatinine Ratio 18.62 Glucose 137.9 H Lactic Acid 1.78 Calcium 8.04 L Magnesium 2.42 H Total Bilirubin 1.07 AST 28.2 ALT 65.2 H Alkaline Phosphatase 99.0 Troponin I < 0.012 NT-Pro-B Natriuret Pep 564 H Total Protein 6.86 Albumin 3.54 Globulin 3.32 Albumin/Globulin Ratio 1.06 Procalcitonin 0.35 H SARS CoV-2 RNA Rapid JAYNA Negative Imaging Imaging: EXAM: CHEST ONE VIEW, FRONTAL VIEW ONLY. FINDINGS: Heart size normal. There is persistent bibasilar consolidation, greater on the left. Small effusions difficult to exclude. No new opacity. No pneumothorax. No acute osseous abnormality identified. IMPRESSION: Stable left greater than right basilar consolidation and possible pleural fluid, likely representing pneumonia. EXAM: CHEST CT WITH INTRAVENOUS CONTRAST FINDINGS: Several enlarged mediastinal nodes. For example right paratracheal node at level of the sternal notch measures 1.0 cm in short axis dimension. Right paratracheal node just above level of the azygos vein 1.3 cm. Right subcarinal node 1.4 cm. No enlarged hilar or axillary nodes are identified. Mild cardiomegaly. Small pericardial effusion. Small to moderate bilateral dependent pleural effusions. Mild bilateral gynecomastia. Visualized portions of the upper abdomen included in this examination of the chest show no significant abnormalities. Lung window images show hypoventilation. Moderate dependent and compressive atelectasis of both lower lobes. Mild subsegmental atelectasis of the right middle lobe and lingula. Mild heterogeneous ground-glass of the rest of the lungs. No pneumothorax. Bone window images show no significant lytic or sclerotic bone lesions. Mild serpentine scoliosis of the thoracic spine. IMPRESSION: 1. Cardiomegaly, small pericardial effusion, and small to moderate bilateral dependent pleural effusions. 2. Hypoventilation with moderate dependent and compressive atelectasis of both lower lobes, and mild subsegmental atelectasis of the right middle lobe and lingula. Mild heterogeneous ground-glass of the rest of the lungs, probably at least partially atelectasis due to the hypoventilation. Pneumonia and pulmonary edema cannot be excluded. 3. Several mildly enlarged mediastinal nodes, potentially secondary to old granulomatous disease or reactive. However, follow-up routine CT chest in 3 months is recommended to show stability and/or improvement. Review Statement Review Statement: I have independently reviewed and interpreted the labs/EKGs/imaging that were ordered by the ER provider. I have reviewed all outside records that are a vailable currently in our EMR including imaging/notes/labs from previous visits. Plan Plan: 1. Acute Hypoxic Respiratory Failure in setting of CAP and Pleural effusions - wean oxygen as tolerated, nebs, lasix 20 mg x1 dose to see if condition improves, echo completed and normal at last visit 2. Sepsis in setting of CAP - met SIRS criteria, blood cultures pending 3. CAP - levaquin Q24H, strep pneumo and legionella negative, nebs 4. Pleural effusions - stable from previous visit, BNP mildly elevated, will give lasix x1 and monitor for improvement, EF 74% at last hospitalization 5. Behavioral problems - continue home medications 6. Hyperlipidemia - chronic, continue home medications DVT Prophylaxis: Ambulation Time Spent: Greater than 80 minutes spent with patient, 50% of the time spent with this patient was devoted to counseling and coordination of care. [facility]annin minutes spent discussing advance care planning. Disposition: Admit to: Med/Surg Inpatient Patient failed outpatient therapy after recent hospitalization. Anticipate >48 hours of care. Discussed Plan of Care with Dr. Carolyn Mora. Medications Medication Orders: Medications Ordered Category Date Time Status 0.9 % Sodium Chloride [Saline Flush] Meds 12/27/23 09:50 Active 1 syr IVF PRN PRN Acetaminophen [Tylenol] Meds 12/27/23 12:41 Active 650 mg PO Q4H PRN Albuterol Sulfate 0.083% Neb [Albuterol 0.083% Neb] Meds 12/27/23 10:42 Active 5 mg NEB Q1-2H PRN Furosemide [Lasix] Meds 12/27/23 15:01 Stat 20 mg IVP ONCE STA Ipratropium/Albuterol Neb [Duoneb] Meds 12/27/23 14:00 Active 3 ml NEB RTQ4H
[2023-12-27 15:50] VITALS: BMI 26.7
[2023-12-27] MEDS: LASIX IVP STA (16:24)
[2023-12-27] MEDS: KLONOPIN PO SCH (20:42)
[2023-12-27] MEDS: HALDOL PO SCH (20:42)
[2023-12-27] MEDS: ZYPREXA PO SCH (20:42)
[2023-12-27] MEDS: ZOCOR PO SCH (20:43)
[2023-12-27] MEDS: INDERAL PO SCH (20:43)
[2023-12-28] MEDS: TYLENOL PO PRN (05:25)
[2023-12-28 05:39] LABS: BASOPHILS % (AUTO) 0.1 % (0.0-3.0); EOSINOPHILS # (AUTO) 0.1 K/ul (0.0-0.7); EOSINOPHILS % (AUTO) 0.5 % (0.0-7.0); HEMATOCRIT 37.4 % (42.0-52.0); HEMOGLOBIN 11.3 g/dl (14.0-18.0); IMMATURE GRANULOCYTE # (AUTO) 0.4 (0.0-1.0); IMMATURE GRANULOCYTE % (AUTO) 2.2 % (0.0-5.0); LYMPHOCYTES # (AUTO) 1.7 K/uL (0.60-3.4); LYMPHOCYTES % (AUTO) 8.5 (10.0-50.0); MEAN CORPUSCULAR HEMOGLOBIN 26.9 pg (27.0-31.0); MEAN CORPUSCULAR HGB CONC 30.2 (31.8-35.4); MONOCYTES # (AUTO) 2.3 K/uL (0.4-2.0); MONOCYTES % (AUTO) 11.5 (0-10); NEUTROPHILS # (AUTO) 15.6 K/ul (2.0-6.9); NEUTROPHILS % (AUTO) 77.2 % (42.2-75.2); PLATELET COUNT 396 10^3/uL (140-440); RDW COEFFICIENT OF VARIATION 14.6 % (11.6-14.8)
[2023-12-28 06:02] LABS: ALANINE AMINOTRANSFERASE 54.7 U/L (0-50); ALBUMIN 3.41 g/dL (3.5-5.0); ALKALINE PHOSPHATASE 93.1 U/L (38-126); ASPARTATE AMINO TRANSFERASE 34.6 U/L (17-59); BILIRUBIN,TOTAL 0.75 mg/dL (0.2-1.3); BLOOD UREA NITROGEN 11.6 mg/dL (9-20); CALCIUM 7.98 mg/dL (8.4-10.2); CHLORIDE 96.7 mmol/L (98-107); CREATININE 0.77 mg/dL (0.60-1.10); GLUCOSE 136.1 mg/dL (74-106); POTASSIUM 4.04 mmol/L (3.5-5.1); TOTAL PROTEIN 6.58 g/dL (6.3-8.2)
[2023-12-28] MEDS: LEVAQUIN 750 MG/150 ML D5W 750 MG/150 ML BAG IV SCH (08:40)
[2023-12-28] MEDS: PAXIL PO SCH (08:49)
[2023-12-28] MEDS: HALDOL PO SCH (08:51)
[2023-12-28] MEDS ORDERED: LEVAQUIN 500 MG/100 ML D5W 500 MG/100 ML BAG IV SCH (09:00)
--- NOTE | 2023-12-28 09:38 | PCM.PROG ---
Date/Time Seen Date Seen by Provider: 12/28/23 Time Seen by Provider: 08:30 Provider Provider[facility] BLANCA COLVIN[facility] Chief Complaint Chief Complaint: PLEURAL EFFUSION, HYPOXIA Subjective Subjective: Feeling better today. Sitter at bedside. Down to 2L via NC Objective Appearance: Positive No Apparent Distress and Alert and Oriented x3 Chest/Lungs: Positive Symmetrical With Equal Breath Sounds, Clear to Auscultation Bilaterally and Good Air Movement all 4 Lung [place] Heart: Positive RRR and Pulses Normal GI/: Positive Soft, Nontender, Bowel Sounds Normal and No Distention Musculoskeletal: Positive Not Examined Neurological: Positive Sensation Intact, Motor intact, Alert, Oriented (person, at baseline) and Muscle Strength 5/5 in Upper and Lower Extremities Bilaterally Vital Signs Vital Signs: Vital Signs: Last 24 Hours 12/27/23 09:45 12/27/23 14:13 12/27/23 15:13 Temperature 101.8 F H 98 F Temperature Source Temporal Artery Scan Temporal Artery Scan Pulse Rate 114 H 99 Respiratory Rate 24 H 20 Blood Pressure 115/62 Blood Pressure Mean Blood Pressure Left Arm 119/82 Blood Pressure Location Blood Pressure Position Supine O2 Sat by Pulse Oximetry 95 95 Oxygen Delivery Method Nasal Cannula Nasal Cannula Oxygen Flow Rate 3 3 Height 5 ft 5 in 5 ft 5 in Weight 76.2 kg 73 kg Telemetry Type Telemetry Monitoring Telemetry Heart Rate Telemetry SPO2 EKG SC Interval EKG QRS Interval Telemetry Strip Reading Pulse Oximetry Type Pulse Oximetry Monitoring 12/27/23 15:13 12/27/23 17:45 12/27/23 18:30 Temperature Temperature Source Pulse Rate Respiratory Rate 20 Blood Pressure Blood Pressure Mean Blood Pressure Left Arm Blood Pressure Location Blood Pressure Position O2 Sat by Pulse Oximetry 96 Oxygen Delivery Method Nasal Cannula Nasal Cannula Oxygen Flow Rate 3 3 Height Weight Telemetry Type Remote Telemetry Telemetry Monitoring Started Telemetry Heart Rate 99 Telemetry SPO2 96 EKG SC Interval 0.13 EKG QRS Interval 0.61 H Telemetry Strip Reading SR Pulse Oximetry Type Pulse Oximetry Monitoring 12/27/23 19:00 12/27/23 20:00 12/27/23 20:00 Temperature Temperature Source Pulse Rate Respiratory Rate Blood Pressure Blood Pressure Mean Blood Pressure Left Arm Blood Pressure Location Blood Pressure Position O2 Sat by Pulse Oximetry 97 Oxygen Delivery Method Nasal Cannula Nasal Cannula Oxygen Flow Rate 2 2 Height Weight Telemetry Type Remote Telemetry Telemetry Monitoring Continues Telemetry Heart Rate 111 H Telemetry SPO2 95 EKG SC Interval 0.16 EKG QRS Interval 0.[address] Pulse Oximetry Type Pulse Oximetry Monitoring 12/27/23 20:57 12/28/23 01:00 12/28/23 01:00 Temperature 99.0 F Temperature Source Temporal Artery Scan Pulse Rate 104 H Respiratory Rate 20 Blood Pressure 101/59 L Blood Pressure Mean 73 Blood Pressure Left Arm Blood Pressure Location Left Arm Blood Pressure Position Supine O2 Sat by Pulse Oximetry 95 96 Oxygen Delivery Method Nasal Cannula Nasal Cannula Oxygen Flow Rate 2 2 Height Weight Telemetry Type Remote Telemetry Telemetry Monitoring Continues Telemetry Heart Rate 88 Telemetry SPO2 96 EKG SC Interval 0.18 EKG QRS Interval 0.08 Telemetry Strip Reading SR Pulse Oximetry Type Remote Telemetry Pulse Oximetry Monitoring Continues 12/28/23 05:22 12/28/23 05:26 12/28/23 07:00 Temperature 98.3 F Temperature Source Temporal Artery Scan Pulse Rate 100 Respiratory Rate 20 Blood Pressure 110/77 Blood Pressure Mean 88 Blood Pressure Left Arm Blood Pressure Location Left Arm Blood Pressure Position Supine O2 Sat by Pulse Oximetry 93 L 95 95 Oxygen Delivery Method Nasal Cannula Nasal Cannula Nasal Cannula Oxygen Flow Rate 2 2 2 Height Weight Telemetry Type Telemetry Monitoring Telemetry Heart Rate Telemetry SPO2 EKG SC Interval EKG QRS Interval Telemetry Strip Reading Pulse Oximetry Type Remote Telemetry Pulse Oximetry Monitoring Continues 12/28/23 07:00 Temperature Temperature Source Pulse Rate Respiratory Rate Blood Pressure Blood Pressure Mean Blood Pressure Left Arm Blood Pressure Location Blood Pressure Position O2 Sat by Pulse Oximetry Oxygen Delivery Method Oxygen Flow Rate Height Weight Telemetry Type Remote Telemetry Telemetry Monitoring Continues Telemetry Heart Rate 95 Telemetry SPO2 96 EKG SC Interval 0.14 EKG QRS Interval 0.08 Telemetry Strip Reading NSR Pulse Oximetry Type Pulse Oximetry Monitoring Lab Results Lab Results: Lab Results: Last 24 Hours 12/28/23 12/27/23 12/27/23 05:12 10:10 10:00 WBC 20.20 H D 28.01 H D RBC 4.20 L 4.08 L Hgb 11.3 L 11.6 L Hct 37.4 L 36.6 L MCV 89.0 89.7 MCH 26.9 L 28.4 MCHC 30.2 L 31.7 L RDW Coeff of Tommy 14.6 14.4 Plt Count 396 481 H Immature Gran % (Auto) 2.2 3.9 Neut % (Auto) 77.2 H 81.6 H Lymph % (Auto) 8.5 L 5.7 L [place] % (Auto) 11.5 H 8.6 Eos % (Auto) 0.5 0.1 Baso % (Auto) 0.1 0.1 Neut # (Auto) 15.6 H 22.8 H Lymph # (Auto) 1.7 1.6 [place] # (Auto) 2.3 H 2.4 H Eos # (Auto) 0.1 0.0 Baso # (Auto) 0.0 0.0 Immature Gran # (Auto) 0.4 1.1 H Sodium 135.0 132.6 L Potassium 4.04 4.47 Chloride 96.7 L 99.5 Carbon Dioxide 32.0 H D 23.9 Anion Gap 10.34 13.67 BUN 11.6 14.9 Creatinine 0.77 0.80 Estimated GFR (MDRD) 109.00 104.00 BUN/Creatinine Ratio 15.06 18.62 Glucose 136.1 H 137.9 H Lactic Acid 1.78 Calcium 7.98 L 8.04 L Magnesium 2.42 H Total Bilirubin 0.75 1.07 AST 34.6 28.2 ALT 54.7 H 65.2 H Alkaline Phosphatase 93.1 99.0 Troponin I < 0.012 NT-Pro-B Natriuret Pep 564 H Total Protein 6.58 6.86 Albumin 3.41 L 3.54 Globulin 3.17 3.32 Albumin/Globulin Ratio 1.07 1.06 Procalcitonin 2.23 H 0.35 H SARS CoV-2 RNA Rapid JAYNA Negative Additional Comments Additional Comments: I have independently reviewed and interpreted the labs/EKGs/imaging ordered during this hospital stay. I have reviewed outside records that are available in our EMR that pertain to medical stay including imaging/notes/labs from previous visits. Active Medications Active Medications: Medications Generic Name Dose Route Start Last Admin Trade Name Freq PRN Reason Stop Dose Admin Acetaminophen 650 mg 12/27/23 12:41 12/28/23 05:25 Acetaminophen 325 Mg Tablet PO 650 mg Q4H PRN Administration Mild Pain Albuterol Sulfate 5 mg 12/27/23 10:42 12/27/23 10:52 Albuterol Sulfate 0.083% Vial.Neb NEB 5 mg Q1-2H PRN Administration Asthma Albuterol/Ipratropium 3 ml 12/27/23 14:00 12/28/23 05:24 Ipratropium/Albuterol Vial.Neb NEB 3 ml RTQ4H HARRY Administration Clonazepam 1 mg 12/27/23 21:00 12/28/23 08:51 Clonazepam 0.5 Mg Tablet PO 1 mg TID HARRY Administration Haloperidol 1 mg 12/28/23 09:00 12/28/23 08:51 Haloperidol 0.5 Mg Tablet PO 1 mg DAILY HARRY Administration Haloperidol 2 mg 12/27/23 21:00 12/27/23 20:42 Haloperidol 0.5 Mg Tablet PO 2 mg BEDTIME HARRY Administration Levofloxacin/Dextrose 750 mg in 150 mls @ 100 mls/hr 12/28/23 09:00 12/28/23 08:40 Levaquin 750 Mg/150 Ml D5w IV 12/31/23 08:59 100 mls/hr DAILY HARRY Administration Non-Formulary Medication 250 mg 12/28/23 09:00 Terbinafine Hcl PO DAILY HARRY Non-Formulary Medication 500 mg 12/28/23 09:00 12/28/23 09:31 Divalproex PO 500 mg BID HARRY Administration Olanzapine 20 mg 12/27/23 21:00 12/27/23 20:42 Olanzapine 10 Mg Tablet PO 20 mg DAILY@2100 HARRY Administration Paroxetine HCl 30 mg 12/28/23 09:00 12/28/23 08:49 Paroxetine Hcl 20 Mg Tablet PO 30 mg DAILY HARRY Administration Propranolol HCl 10 mg 12/27/23 21:00 12/28/23 08:48 Propranolol Hcl 20 Mg Tablet PO 10 mg 2XD HARRY Administration Simvastatin 10 mg 12/27/23 21:00 12/27/23 20:43 Simvastatin 10 Mg Tablet PO 10 mg DAILY@2100 HARRY Administration Sodium Chloride 1 syr 12/27/23 21:00 12/28/23 04:22 0.9% Sodium Chloride 10 Ml Disp.Syrin IVF 1 syr Q8H HARRY Administration Plan Plan: 1. Acute Hypoxic Respiratory Failure in setting of CAP and Pleural effusions - Improving, down to 2L today, continue wean oxygen as tolerated, nebs, lasix 20 mg x1 dose to see if condition improves, echo completed and normal at last visit 2. Sepsis in setting of CAP - met SIRS criteria, blood cultures pending 3. CAP - levaquin Q24H, strep pneumo and legionella negative, nebs 4. Pleural effusions - stable from previous visit, BNP mildly elevated, will give lasix x1 and monitor for improvement, EF 74% at last hospitalization 5. Behavioral problems - continue home medications 6. Hyperlipidemia - chronic, continue home medications DVT Prophylaxis: Ambulation Review Statement Review Statement: I have personally discussed and reviewed the patient's visit/currently labs/imaging/decision making with Dr. Mora, my supervising attending. Greater that 50 minutes spent with patient, 50% of the time spent with this patient was devoted to counseling and coordination of care.
[2023-12-28] MEDS ORDERED: ZOFRAN 4 MG/2 ML IVP PRN (13:23)
[2023-12-28] MEDS: NON-FORMULARY MEDICATION (Terbinafine Hcl 250 mg tablet) PO SCH (14:28)
[2023-12-29 05:26] LABS: BASOPHILS % (AUTO) 0.2 % (0.0-3.0); EOSINOPHILS % (AUTO) 0.2 % (0.0-7.0); HEMATOCRIT 33.6 % (42.0-52.0); HEMOGLOBIN 10.3 g/dl (14.0-18.0); IMMATURE GRANULOCYTE # (AUTO) 0.4 (0.0-1.0); IMMATURE GRANULOCYTE % (AUTO) 2.3 % (0.0-5.0); LYMPHOCYTES # (AUTO) 2.3 K/uL (0.60-3.4); LYMPHOCYTES % (AUTO) 13.3 (10.0-50.0); MEAN CORPUSCULAR HEMOGLOBIN 27.1 pg (27.0-31.0); MEAN CORPUSCULAR HGB CONC 30.7 (31.8-35.4); MEAN CORPUSCULAR VOLUME 88.4 fl (80.0-94.0); MONOCYTES # (AUTO) 2.2 K/uL (0.4-2.0); MONOCYTES % (AUTO) 12.7 (0-10); NEUTROPHILS # (AUTO) 12.3 K/ul (2.0-6.9); NEUTROPHILS % (AUTO) 71.3 % (42.2-75.2); PLATELET COUNT 330 10^3/uL (140-440); RDW COEFFICIENT OF VARIATION 14.6 % (11.6-14.8); WHITE BLOOD COUNT 17.18 K/ul (4.2-10.2)
[2023-12-29 05:41] LABS: ALANINE AMINOTRANSFERASE 126.8 U/L (0-50); ALBUMIN 3.28 g/dL (3.5-5.0); ALKALINE PHOSPHATASE 126.1 U/L (38-126); ASPARTATE AMINO TRANSFERASE 89.5 U/L (17-59); BILIRUBIN,TOTAL 0.6 mg/dL (0.2-1.3); BLOOD UREA NITROGEN 8.9 mg/dL (9-20); CALCIUM 8.16 mg/dL (8.4-10.2); CARBON DIOXIDE 32.9 mmol/L (22-30.0); CHLORIDE 99.4 mmol/L (98-107); CREATININE 0.65 mg/dL (0.60-1.10); GLUCOSE 130.5 mg/dL (74-106); POTASSIUM 3.92 mmol/L (3.5-5.1); SODIUM 137.7 mmol/L (134.5-145); TOTAL PROTEIN 6.55 g/dL (6.3-8.2)
--- NOTE | 2023-12-29 10:33 | PCM.PROG ---
Date/Time Seen Date Seen by Provider: 12/29/23 Time Seen by Provider: 08:45 Provider Provider[facility] BLANCA COLVIN, [facility] Chief Complaint Chief Complaint: PLEURAL EFFUSION, HYPOXIA Subjective Subjective: Had choking episode yesterday with lunch. Fever noted yesterday afternoon as well. Patient reports feeling better today and wanting to go home soon. Objective Appearance: Positive No Apparent Distress Chest/Lungs: Positive Symmetrical With Equal Breath Sounds and Clear to Auscultation Bilaterally Heart: Positive RRR and Pulses Normal GI/: Positive Soft, Nontender, Bowel Sounds Normal and No Distention Musculoskeletal: Positive Not Examined Neurological: Positive Sensation Intact, Motor intact, Alert, Oriented (person, place, at baseline) and Muscle Strength 5/5 in Upper and Lower Extremities Bilaterally Vital Signs Vital Signs: Vital Signs: Last 24 Hours 12/28/23 13:00 12/28/23 13:00 12/28/23 13:52 Temperature 102 F H Temperature Source Tympanic Pulse Rate 109 H Respiratory Rate 19 Blood Pressure 120/74 Blood Pressure Mean 89 Blood Pressure Location Right Arm Blood Pressure Position Sitting O2 Sat by Pulse Oximetry 97 93 L Oxygen Delivery Method Nasal Cannula Nasal Cannula Oxygen Flow Rate Telemetry Type Remote Telemetry Telemetry Monitoring Continues Telemetry Heart Rate 113 H Telemetry SPO2 97 EKG NC Interval 0.13 EKG QRS Interval 0.[address] Pulse Oximetry Type Bedside Monitor Pulse Oximetry Monitoring Continues 12/28/23 14:00 12/28/23 14:10 12/28/23 15:30 Temperature 100.2 F 99.7 F Temperature Source Oral Oral Pulse Rate Respiratory Rate Blood Pressure Blood Pressure Mean Blood Pressure Location Blood Pressure Position O2 Sat by Pulse Oximetry 95 Oxygen Delivery Method Nasal Cannula Nasal Cannula Room Air Oxygen Flow Rate 1 1 1 Telemetry Type Telemetry Monitoring Telemetry Heart Rate Telemetry SPO2 EKG NC Interval EKG QRS Interval Telemetry Strip Reading Pulse Oximetry Type Pulse Oximetry Monitoring 12/28/23 18:00 12/28/23 18:20 12/28/23 19:00 Temperature 98 F Temperature Source Temporal Artery Scan Pulse Rate Respiratory Rate Blood Pressure Blood Pressure Mean Blood Pressure Location Blood Pressure Position O2 Sat by Pulse Oximetry 95 Oxygen Delivery Method Room Air Nasal Cannula Oxygen Flow Rate 1 Telemetry Type Remote Telemetry Telemetry Monitoring Started Telemetry Heart Rate 67 Telemetry SPO2 EKG NC Interval 0.18 EKG QRS Interval 0.08 Telemetry Strip Reading NSR Pulse Oximetry Type Remote Telemetry Pulse Oximetry Monitoring Continues 12/28/23 19:00 12/28/23 20:00 12/28/23 20:00 Temperature Temperature Source Pulse Rate Respiratory Rate Blood Pressure Blood Pressure Mean Blood Pressure Location Blood Pressure Position O2 Sat by Pulse Oximetry 94 L Oxygen Delivery Method Nasal Cannula Nasal Cannula Oxygen Flow Rate 1 1 Telemetry Type Remote Telemetry Telemetry Monitoring Continues Telemetry Heart Rate 109 H Telemetry SPO2 EKG NC Interval 0.19 EKG QRS Interval 0.[address] Pulse Oximetry Type Pulse Oximetry Monitoring 12/28/23 22:00 12/29/23 01:00 12/29/23 01:00 Temperature 97.5 F L Temperature Source Temporal Artery Scan Pulse Rate 102 H Respiratory Rate 24 H Blood Pressure 114/64 Blood Pressure Mean 80 Blood Pressure Location Left Arm Blood Pressure Position Supine O2 Sat by Pulse Oximetry 95 95 Oxygen Delivery Method Room Air Nasal Cannula Oxygen Flow Rate 1 Telemetry Type Remote Telemetry Telemetry Monitoring Continues Telemetry Heart Rate 91 Telemetry SPO2 EKG NC Interval 0.17 EKG QRS Interval 0.09 Telemetry Strip Reading SR Pulse Oximetry Type Remote Telemetry Pulse Oximetry Monitoring Continues 12/29/23 05:23 12/29/23 05:34 12/29/23 07:00 Temperature 97.8 F Temperature Source Temporal Artery Scan Pulse Rate 98 Respiratory Rate 19 Blood Pressure 124/66 Blood Pressure Mean 85 Blood Pressure Location Right Arm Blood Pressure Position Supine O2 Sat by Pulse Oximetry 94 L 95 Oxygen Delivery Method Nasal Cannula Nasal Cannula Oxygen Flow Rate 1 1 Telemetry Type Remote Telemetry Telemetry Monitoring Continues Telemetry Heart Rate 85 Telemetry SPO2 98 EKG NC Interval 0.17 EKG QRS Interval 0.07 Telemetry Strip Reading SR Pulse Oximetry Type Pulse Oximetry Monitoring 12/29/23 07:00 12/29/23 08:00 12/29/23 10:00 Temperature Temperature Source Pulse Rate Respiratory Rate Blood Pressure Blood Pressure Mean Blood Pressure Location Blood Pressure Position O2 Sat by Pulse Oximetry 95 96 Oxygen Delivery Method Nasal Cannula Nasal Cannula Nasal Cannula Oxygen Flow Rate 1 1 1 Telemetry Type Telemetry Monitoring Telemetry Heart Rate Telemetry SPO2 EKG NC Interval EKG QRS Interval Telemetry Strip Reading Pulse Oximetry Type Remote Telemetry Pulse Oximetry Monitoring Continues Lab Results Lab Results: Lab Results: Last 24 Hours 12/29/23 05:15 WBC 17.18 H RBC 3.80 L Hgb 10.3 L Hct 33.6 L MCV 88.4 MCH 27.1 MCHC 30.7 L RDW Coeff of Tommy 14.6 Plt Count 330 Immature Gran % (Auto) 2.3 Neut % (Auto) 71.3 Lymph % (Auto) 13.3 [place] % (Auto) 12.7 H Eos % (Auto) 0.2 Baso % (Auto) 0.2 Neut # (Auto) 12.3 H Lymph # (Auto) 2.3 [place] # (Auto) 2.2 H Eos # (Auto) 0.0 Baso # (Auto) 0.0 Immature Gran # (Auto) 0.4 Sodium 137.7 Potassium 3.92 Chloride 99.4 Carbon Dioxide 32.9 H Anion Gap 9.32 BUN 8.9 L Creatinine 0.65 Estimated GFR (MDRD) 132.00 BUN/Creatinine Ratio 13.69 Glucose 130.5 H Calcium 8.16 L Total Bilirubin 0.60 AST 89.5 H D ALT 126.8 H D Alkaline Phosphatase 126.1 H D Total Protein 6.55 Albumin 3.28 L Globulin 3.27 Albumin/Globulin Ratio 1.00 Procalcitonin 1.27 H Additional Comments Additional Comments: I have independently reviewed and interpreted the labs/EKGs/imaging ordered during this hospital stay. I have reviewed outside records that are available in our EMR that pertain to medical stay including imaging/notes/labs from previous visits. Active Medications Active Medications: Medications Generic Name Dose Route Start Last Admin Trade Name Freq PRN Reason Stop Dose Admin Acetaminophen 650 mg 12/27/23 12:41 12/28/23 13:59 Acetaminophen 325 Mg Tablet PO 650 mg Q4H PRN Administration Mild Pain Albuterol Sulfate 5 mg 12/27/23 10:42 12/27/23 10:52 Albuterol Sulfate 0.083% Vial.Neb NEB 5 mg Q1-2H PRN Administration Asthma Albuterol/Ipratropium 3 ml 12/27/23 14:00 12/29/23 10:02 Ipratropium/Albuterol Vial.Neb NEB 3 ml RTQ4H HARRY Administration Clonazepam 1 mg 12/27/23 21:00 12/29/23 09:21 Clonazepam 0.5 Mg Tablet PO 1 mg TID HARRY Administration Haloperidol 1 mg 12/28/23 09:00 12/29/23 09:22 Haloperidol 0.5 Mg Tablet PO 1 mg DAILY HARRY Administration Haloperidol 2 mg 12/27/23 21:00 12/28/23 20:37 Haloperidol 0.5 Mg Tablet PO 2 mg BEDTIME HARRY Administration Levofloxacin/Dextrose 750 mg in 150 mls @ 100 mls/hr 12/28/23 09:00 12/29/23 09:25 Levaquin 750 Mg/150 Ml D5w IV 12/31/23 08:59 100 mls/hr DAILY HARRY Administration Non-Formulary Medication 250 mg 12/28/23 09:00 12/29/23 09:24 Terbinafine Hcl PO 250 mg DAILY HARRY Administration Non-Formulary Medication 500 mg 12/28/23 09:00 12/29/23 09:25 Divalproex PO 500 mg BID HARRY Administration Olanzapine 20 mg 12/27/23 21:00 12/28/23 20:37 Olanzapine 10 Mg Tablet PO 20 mg DAILY@2100 HARRY Administration Ondansetron HCl 4 mg 12/28/23 13:23 Ondansetron Hcl/Pf 4 Mg/2 Ml Sdv IVP Q6H PRN Nausea / Vomiting Paroxetine HCl 30 mg 12/28/23 09:00 12/29/23 09:22 Paroxetine Hcl 20 Mg Tablet PO 30 mg DAILY HARRY Administration Propranolol HCl 10 mg 12/27/23 21:00 12/29/23 09:22 Propranolol Hcl 20 Mg Tablet PO 10 mg 2XD HARRY Administration Simvastatin 10 mg 12/27/23 21:00 12/28/23 20:37 Simvastatin 10 Mg Tablet PO 10 mg DAILY@2100 HARRY Administration Sodium Chloride 1 syr 12/27/23 21:00 12/29/23 06:24 0.9% Sodium Chloride 10 Ml Disp.Syrin IVF 1 syr Q8H HARRY Administration Plan Plan: 1. Acute Hypoxic Respiratory Failure in setting of CAP and Pleural effusions - Improving, down to 1L today, continue wean oxygen as tolerated, nebs, lasix 20 mg x1 dose initially, minimal response, echo completed and normal at last visit 2. Sepsis in setting of CAP - Ruled out, met SIRS criteria, blood cultures negative 3. CAP - levaquin Q24H, strep pneumo and legionella negative, nebs 4. Pleural effusions - stable from previous visit, BNP mildly elevated, EF 74% at last hospitalization 5. Behavioral problems - continue home medications 6. Hyperlipidemia - chronic, continue home medications DVT Prophylaxis: Ambulation Review Statement Review Statement: I have personally discussed and reviewed the patient's visit/currently labs/imaging/decision making with Dr. Mora, my supervising attending. Greater that 50 minutes spent with patient, 50% of the time spent with this patient was devoted to counseling and coordination of care.
[2023-12-29] MEDS: DUONEB NEB SCH (14:38)
[2023-12-30 05:30] LABS: HEMATOCRIT 36.6 % (42.0-52.0); HEMOGLOBIN 11.1 g/dl (14.0-18.0); MEAN CORPUSCULAR HEMOGLOBIN 26.7 pg (27.0-31.0); MEAN CORPUSCULAR HGB CONC 30.3 (31.8-35.4); PLATELET COUNT 344 10^3/uL (140-440); RED BLOOD COUNT 4.16 10^6/ul (4.70-6.10); WHITE BLOOD COUNT 16.92 K/ul (4.2-10.2)
[2023-12-30 05:39] LABS: ANISOCYTOSIS NOT PRESENT (NOT PRESENT)
[2023-12-30 05:45] LABS: ALANINE AMINOTRANSFERASE 177.1 U/L (0-50); ALBUMIN 3.14 g/dL (3.5-5.0); ALKALINE PHOSPHATASE 134.3 U/L (38-126); BILIRUBIN,TOTAL 0.46 mg/dL (0.2-1.3); BLOOD UREA NITROGEN 10.7 mg/dL (9-20); CALCIUM 8.21 mg/dL (8.4-10.2); CARBON DIOXIDE 30.8 mmol/L (22-30.0); CHLORIDE 98.9 mmol/L (98-107); CREATININE 0.75 mg/dL (0.60-1.10); GLUCOSE 112.9 mg/dL (74-106); POTASSIUM 4.3 mmol/L (3.5-5.1); SODIUM 135.7 mmol/L (134.5-145); TOTAL PROTEIN 6.48 g/dL (6.3-8.2)
[2023-12-30] MEDS ORDERED: ROCEPHIN 1 GM/50 ML D5W 1 GM/50 ML BAG IV SCH (07:30)
--- NOTE | 2023-12-30 10:00 | PCM.PROG ---
Date/Time Seen Date Seen by Provider: 12/30/23 Time Seen by Provider: 09:00 Provider [facility] BL[facility]CA COLVIN[facility] Chief Complaint Chief Complaint: PLEURAL EFFUSION, HYPOXIA Subjective Subjective: Patient reports feeling better today. Sitting up on side of bed eating breakfast. On RA at this time. Sitter at bedside. Objective Appearance: Positive No Apparent Distress and Alert and Oriented x3 Chest/Lungs: Positive Symmetrical With Equal Breath Sounds, Clear to Auscultation Bilaterally and Good Air Movement all 4 Lung [place] Heart: Positive RRR and Pulses Normal GI/: Positive Soft, Nontender, Bowel Sounds Normal and No Distention Musculoskeletal: Positive Not Examined Neurological: Positive Sensation Intact, Motor intact, Alert and Oriented (to person and place, at baseline mental status) Vital Signs Vital Signs: Vital Signs: Last 24 Hours 12/29/23 10:00 12/29/23 13:00 12/29/23 13:00 Temperature Temperature Source Pulse Rate Respiratory Rate Blood Pressure Blood Pressure Mean Blood Pressure Location Blood Pressure Position O2 Sat by Pulse Oximetry 96 96 Oxygen Delivery Method Nasal Cannula Room Air Oxygen Flow Rate 1 Telemetry Type Remote Telemetry Telemetry Monitoring Continues Telemetry Heart Rate 100 Telemetry SPO2 97 EKG MI Interval 0.15 EKG QRS Interval 0.[address] Pulse Oximetry Type Remote Telemetry Pulse Oximetry Monitoring Continues 12/29/23 14:00 12/29/23 14:00 12/29/23 19:00 Temperature 99.6 F Temperature Source Tympanic Pulse Rate 107 H Respiratory Rate 19 Blood Pressure 103/80 Blood Pressure Mean 87 Blood Pressure Location Left Arm Blood Pressure Position Sitting O2 Sat by Pulse Oximetry 93 L 95 Oxygen Delivery Method Nasal Cannula Room Air Room Air Oxygen Flow Rate Telemetry Type Telemetry Monitoring Telemetry Heart Rate Telemetry SPO2 EKG MI Interval EKG QRS Interval Telemetry Strip [place] Pulse Oximetry Type Remote Telemetry Pulse Oximetry Monitoring Continues 12/29/23 19:00 12/29/23 20:00 12/29/23 20:00 Temperature Temperature Source Pulse Rate Respiratory Rate Blood Pressure Blood Pressure Mean Blood Pressure Location Blood Pressure Position O2 Sat by Pulse Oximetry Oxygen Delivery Method Room Air Room Air Oxygen Flow Rate Telemetry Type Remote Telemetry Telemetry Monitoring Continues Telemetry Heart Rate 103 H Telemetry SPO2 96 EKG MI Interval 0.15 EKG QRS Interval 0.[address] Pulse Oximetry Type Pulse Oximetry Monitoring 12/29/23 21:13 12/30/23 01:00 12/30/23 01:00 Temperature 98.3 F Temperature Source Oral Pulse Rate 105 H Respiratory Rate 20 Blood Pressure 152/74 H Blood Pressure Mean 100 Blood Pressure Location Left Arm Blood Pressure Position Supine O2 Sat by Pulse Oximetry 93 L 93 L Oxygen Delivery Method Room Air Room Air Oxygen Flow Rate Telemetry Type Remote Telemetry Telemetry Monitoring Continues Telemetry Heart Rate 105 H Telemetry SPO2 90 L EKG MI Interval 0.14 EKG QRS Interval 0.[address] Pulse Oximetry Type Remote Telemetry Pulse Oximetry Monitoring Continues 12/30/23 05:23 12/30/23 05:34 12/30/23 07:00 Temperature 98.2 F Temperature Source Oral Pulse Rate 97 Respiratory Rate 20 Blood Pressure 107/65 Blood Pressure Mean 79 Blood Pressure Location Left Arm Blood Pressure Position Supine O2 Sat by Pulse Oximetry 95 93 L 95 Oxygen Delivery Method Nasal Cannula Room Air Room Air Oxygen Flow Rate 1.5 Telemetry Type Telemetry Monitoring Telemetry Heart Rate Telemetry SPO2 EKG MI Interval EKG QRS Interval Telemetry Strip Reading Pulse Oximetry Type Remote Telemetry Pulse Oximetry Monitoring Continues 12/30/23 07:00 Temperature Temperature Source Pulse Rate Respiratory Rate Blood Pressure Blood Pressure Mean Blood Pressure Location Blood Pressure Position O2 Sat by Pulse Oximetry Oxygen Delivery Method Oxygen Flow Rate Telemetry Type Remote Telemetry Telemetry Monitoring Continues Telemetry Heart Rate 87 Telemetry SPO2 89 L EKG MI Interval 0.15 EKG QRS Interval 0.07 Telemetry Strip Reading SR Pulse Oximetry Type Pulse Oximetry Monitoring Lab Results Lab Results: Lab Results: Last 24 Hours 12/30/23 05:15 WBC 16.92 H RBC 4.16 L Hgb 11.1 L Hct 36.6 L MCV 88.0 MCH 26.7 L MCHC 30.3 L RDW Coeff of Tommy 15.0 H Plt Count 344 Neutrophils % (Manual) 72.0 Lymphocytes % (Manual) 15.0 Monocytes % (Manual) 11.0 H Reactive Lymphocytes 2.0 Anisocytosis Not present Sodium 135.7 Potassium 4.30 Chloride 98.9 Carbon Dioxide 30.8 H Anion Gap 10.30 BUN 10.7 Creatinine 0.75 Estimated GFR (MDRD) 112.00 BUN/Creatinine Ratio 14.26 Glucose 112.9 H Calcium 8.21 L Total Bilirubin 0.46 AST 142.0 H D ALT 177.1 H D Alkaline Phosphatase 134.3 H Total Protein 6.48 Albumin 3.14 L Globulin 3.34 Albumin/Globulin Ratio 0.94 Procalcitonin 0.80 H Additional Comments Additional Comments: I have independently reviewed and interpreted the labs/EKGs/imaging ordered during this hospital stay. I have reviewed outside records that are available in our EMR that pertain to medical stay including imaging/notes/labs from previous visits. Active Medications Active Medications: Medications Generic Name Dose Route Start Last Admin Trade Name Freq PRN Reason Stop Dose Admin Acetaminophen 650 mg 12/27/23 12:41 12/29/23 13:28 Acetaminophen 325 Mg Tablet PO 650 mg Q4H PRN Administration Mild Pain Albuterol Sulfate 5 mg 12/27/23 10:42 12/27/23 10:52 Albuterol Sulfate 0.083% Vial.Neb NEB 5 mg Q1-2H PRN Administration Asthma Albuterol/Ipratropium 3 ml 12/29/23 12:00 12/30/23 05:26 Ipratropium/Albuterol Vial.Neb NEB 3 ml RTQ6H HARRY Administration Clonazepam 1 mg 12/27/23 21:00 12/30/23 09:11 Clonazepam 0.5 Mg Tablet PO 1 mg TID HARRY Administration Haloperidol 1 mg 12/28/23 09:00 12/30/23 09:09 Haloperidol 0.5 Mg Tablet PO 1 mg DAILY HARRY Administration Haloperidol 2 mg 12/27/23 21:00 12/29/23 20:32 Haloperidol 0.5 Mg Tablet PO 2 mg BEDTIME HARRY Administration Levofloxacin/Dextrose 750 mg in 150 mls @ 100 mls/hr 12/28/23 09:00 12/30/23 08:58 Levaquin 750 Mg/150 Ml D5w IV 12/31/23 08:59 100 mls/hr DAILY HARRY Administration Non-Formulary Medication 250 mg 12/28/23 09:00 12/30/23 08:57 Terbinafine Hcl PO 250 mg DAILY HARRY Administration Non-Formulary Medication 500 mg 12/28/23 09:00 12/30/23 08:57 Divalproex PO 500 mg BID HARRY Administration Olanzapine 20 mg 12/27/23 21:00 12/29/23 20:33 Olanzapine 10 Mg Tablet PO 20 mg DAILY@2100 HARRY Administration Ondansetron HCl 4 mg 12/28/23 13:23 Ondansetron Hcl/Pf 4 Mg/2 Ml Sdv IVP Q6H PRN Nausea / Vomiting Paroxetine HCl 30 mg 12/28/23 09:00 12/30/23 09:09 Paroxetine Hcl 20 Mg Tablet PO 30 mg DAILY HARRY Administration Propranolol HCl 10 mg 12/27/23 21:00 12/30/23 09:10 Propranolol Hcl 20 Mg Tablet PO 10 mg 2XD HARRY Administration Simvastatin 10 mg 12/27/23 21:00 12/29/23 20:32 Simvastatin 10 Mg Tablet PO 10 mg DAILY@2100 HARRY Administration Sodium Chloride 1 syr 12/27/23 21:00 12/30/23 05:33 0.9% Sodium Chloride 10 Ml Disp.Syrin IVF 1 syr Q8H HARRY Administration Plan Plan: 1. Acute Hypoxic Respiratory Failure in setting of CAP and Pleural effusions - Resolved 2. Sepsis in setting of CAP - Ruled out, met SIRS criteria, blood cultures negative 3. CAP - levaquin Q24H, strep pneumo and legionella negative, nebs 4. Pleural effusions - stable from previous visit, BNP mildly elevated, EF 74% at last hospitalization 5. Behavioral problems - continue home medications 6. Hyperlipidemia - chronic, continue home medications 7. Acute Transaminitis - liver ultrasound completed at last visit, trended up today, monitor DVT Prophylaxis: Ambulation Review Statement Review Statement: I have personally discussed and reviewed the patient's visit/currently labs/imaging/decision making with Dr. Mora, my supervising attending. Greater that 50 minutes spent with patient, 50% of the time spent with this patient was devoted to counseling and coordination of care.
[2023-12-30] MEDS: MIRALAX PO SCH (15:15)
[2023-12-31 05:27] VITALS: BP 101/73; PULSE 95; RESP 20; TEMP 98.9
[2023-12-31 05:58] LABS: HEMATOCRIT 37.4 % (42.0-52.0); HEMOGLOBIN 11.5 g/dl (14.0-18.0); MEAN CORPUSCULAR HEMOGLOBIN 27.1 pg (27.0-31.0); MEAN CORPUSCULAR HGB CONC 30.7 (31.8-35.4); PLATELET COUNT 330 10^3/uL (140-440); RDW COEFFICIENT OF VARIATION 15.1 % (11.6-14.8); RED BLOOD COUNT 4.25 10^6/ul (4.70-6.10)
[2023-12-31 06:04] LABS: ALANINE AMINOTRANSFERASE 203.4 U/L (0-50); ALBUMIN 3.31 g/dL (3.5-5.0); ALKALINE PHOSPHATASE 141.1 U/L (38-126); ASPARTATE AMINO TRANSFERASE 136.4 U/L (17-59); BILIRUBIN,TOTAL 0.73 mg/dL (0.2-1.3); BLOOD UREA NITROGEN 9.7 mg/dL (9-20); CALCIUM 8.22 mg/dL (8.4-10.2); CARBON DIOXIDE 27.2 mmol/L (22-30.0); CHLORIDE 100.3 mmol/L (98-107); CREATININE 0.67 mg/dL (0.60-1.10); GLUCOSE 118.5 mg/dL (74-106); POTASSIUM 4.51 mmol/L (3.5-5.1); SODIUM 134.1 mmol/L (134.5-145); TOTAL PROTEIN 6.61 g/dL (6.3-8.2)
[2023-12-31 06:06] LABS: ANISOCYTOSIS NOT PRESENT (NOT PRESENT)
--- NOTE | 2023-12-31 08:58 | DCSUM ---
Admission Date Admission Date: 12/27/23 Discharge Date Discharge Date: 12/31/23 Admission Diagnosis Admission Diagnosis: 1. Acute Hypoxic Respiratory Failure in setting of CAP and Pleural effusions 2. Sepsis in setting of CAP 3. CAP 4. Pleural effusions 5. Behavioral problems 6. Hyperlipidemia Discharge Diagnosis Discharge Diagnosis: 1. Acute Hypoxic Respiratory Failure in setting of CAP and Pleural effusions - Resolved 2. Sepsis in setting of CAP - Ruled out, blood cultures negative 3. CAP - Improving 4. Pleural effusions - stable 5. Behavioral problems - continue home medications 6. Hyperlipidemia - chronic, stable 7. Acute Transaminitis - liver ultrasound completed at last visit, LFTs improving Hospital Provider Hospital Provider: BLANCA COLVIN, [facility] Primary Care Physician Primary Care Physician: GOPI MONTOYA Summary of History and Physical Summary of History and Physical: 48 yo male from local [facility] presented to the ER for shortness of breath. Patient has intellectual disability and is unable to provide HPI. Caregiver at bedside reports that he reported shortness of breath and chest pain. Checked his vital signs which were ok at the time. Went to call the nurse and when she came back inside he was on the ground with blue lips and fingers and lethargic. He was d/c from this facility on 12/23 for treatment of bilateral CAP with augmentin and doxycyline. Completed course of antibiotics. Fever was 101 on arrival here, with tachycardia and tachypnea. Sat was found to be 95% on 3L. Hospital Course Subjective: During stay, patient was treated for recurrent pneumonia with levaquin and nebs. Blood cultures were completed and negative. Strep pneumo and legionella completed previous hospitalization and negative. White count has trended down as well as procal. Liver enzymes became slightly elevated this visit as well but are trending down. US completed last hospitalization and showed hepatic steatosis. Likely reactive due to infection. Initially, patient required 3-4L of oxygen. He was weaned to RA 2 days ago and has tolerated well. He has not had fever in over 24 hours and reports feeling much better. No changes to home medication regimen. Recommend PCP repeating labs and follow-up appointment. Appearance: Pleasant, No Apparent Distress and Alert HEENT: MMM, Supple and No JVD CVS: No Murmur Abdomen: Soft, Non-Tender and No Distention Respiratory: No Dyspnea Extremities: No Edema Vital Signs: Most Recent Vital Signs Temperature 98.9 F 12/31/23 05:21 Temperature Source Temporal Artery Scan 12/31/23 05:21 Temperature Source Temporal Artery Scan 12/27/23 09:45 Pulse Rate 95 12/31/23 05:21 Respiratory Rate 20 12/31/23 05:21 Blood Pressure 101/73 12/31/23 05:21 Blood Pressure Mean 82 12/31/23 05:21 Blood Pressure Left Arm 119/82 12/27/23 15:13 Blood Pressure Location Left Arm 12/31/23 05:21 Blood Pressure Position Supine 12/31/23 05:21 O2 Sat by Pulse Oximetry 92 L 12/31/23 05:26 Oxygen Delivery Method Room Air 12/31/23 05:26 Oxygen Flow Rate 1.5 12/30/23 05:23 Height 5 ft 5 in 12/27/23 15:13 Weight 73 kg 12/27/23 15:13 Telemetry Type Remote Telemetry 12/31/23 01:00 Telemetry Monitoring Continues 12/31/23 01:00 Irregular Telemetry Rate (Approximate) 90-100 BPM 12/31/23 01:00 Telemetry Heart Rate 92 12/31/23 01:00 Telemetry SPO2 92 L 12/31/23 01:00 EKG SC Interval 0.16 12/31/23 01:00 EKG QRS Interval 0.08 12/31/23 01:00 Telemetry Strip Reading NSR 12/31/23 01:00 Pulse Oximetry Type Remote Telemetry 12/31/23 01:00 Pulse Oximetry Monitoring Continues 12/31/23 01:00 Imaging: EXAM: CHEST CT WITH INTRAVENOUS CONTRAST FINDINGS: Several enlarged mediastinal nodes. For example right paratracheal node at level of the sternal notch measures 1.0 cm in short axis dimension. Right paratracheal node just above level of the azygos vein 1.3 cm. Right subcarinal node 1.4 cm. No enlarged hilar or axillary nodes are identified. Mild cardiomegaly. Small pericardial effusion. Small to moderate bilateral dependent pleural effusions. Mild bilateral gynecomastia. Visualized portions of the upper abdomen included in this examination of the chest show no significant abnormalities. Lung window images show hypoventilation. Moderate dependent and compressive atelectasis of both lower lobes. Mild subsegmental atelectasis of the right middle lobe and lingula. Mild heterogeneous ground-glass of the rest of the lungs. No pneumothorax. Bone window images show no significant lytic or sclerotic bone lesions. Mild serpentine scoliosis of the thoracic spine. IMPRESSION: 1. Cardiomegaly, small pericardial effusion, and small to moderate bilateral dependent pleural effusions. 2. Hypoventilation with moderate dependent and compressive atelectasis of both lower lobes, and mild subsegmental atelectasis of the right middle lobe and lingula. Mild heterogeneous ground-glass of the rest of the lungs, probably at least partially atelectasis due to the hypoventilation. Pneumonia and pulmonary edema cannot be excluded. 3. Several mildly enlarged mediastinal nodes, potentially secondary to old granulomatous disease or reactive. However, follow-up routine CT chest in 3 months is recommended to show stability and/or improvement. EXAM: CHEST ONE VIEW, FRONTAL VIEW ONLY. FINDINGS: Heart size normal. There is persistent bibasilar consolidation, greater on the left. Small effusions difficult to exclude. No new opacity. No pneumothorax. No acute osseous abnormality identified. IMPRESSION: Stable left greater than right basilar consolidation and possible pleural fluid, likely representing pneumonia. Lab Results Last 24 Hours: 12/31/23 05:45 WBC 16.20 H RBC 4.25 L Hgb 11.5 L Hct 37.4 L MCV 88.0 MCH 27.1 MCHC 30.7 L RDW Coeff of Tommy 15.1 H Plt Count 330 Neutrophils % (Manual) 62.0 Band Neutrophils % 3.0 Lymphocytes % (Manual) 18.0 Monocytes % (Manual) 14.0 H Reactive Lymphocytes 3.0 Anisocytosis Not present Sodium 134.1 L Potassium 4.51 Chloride 100.3 Carbon Dioxide 27.2 Anion Gap 11.11 BUN 9.7 Creatinine 0.67 Estimated GFR (MDRD) 128.00 BUN/Creatinine Ratio 14.47 Glucose 118.5 H Calcium 8.22 L Total Bilirubin 0.73 AST 136.4 H ALT 203.4 H Alkaline Phosphatase 141.1 H Total Protein 6.61 Albumin 3.31 L Globulin 3.30 Albumin/Globulin Ratio 1.00 Procalcitonin 0.47 H Discharge Instructions Discharge Planning: Discharge Planning > 40 minutes If patient is discharged with left ventricular systolic dysfunction: NA Discharged with a beta fan? [] If no, why not? [] Discharged with an caden/arb? [] If no, why not? [] Diagnosis: Pneumonia Diet: Soft diet Activity: as tolerated Follow-up with PCP next week. Repeat labs to recheck white count and liver enzymes. Medications: [facility] Discharge Medications: Medications at Discharge (Home Meds & RX) acetaminophen 325 mg tablet (Tylenol) 650 mg PO Q4HR PRN Analgesia 06/05/15 olanzapine 20 mg tablet (Zyprexa) 20 mg PO BEDTIME 06/05/15 simvastatin 10 mg tablet 10 mg PO QHS 07/03/22 clonazepam 1 mg tablet 1 mg PO TID 12/21/23 divalproex 500 mg tablet,extended release 24 hr 500 mg PO BID 12/21/23 haloperidol 1 mg tablet 1 mg PO DAILY 12/21/23 haloperidol 2 mg tablet 2 mg PO BEDTIME 12/21/23 paroxetine HCl 30 mg tablet 30 mg PO DAILY 12/21/23 propranolol 10 mg tablet 10 mg PO 2XD 12/21/23 terbinafine HCl 250 mg tablet 250 mg PO DAILY 12/21/23 Discharge Plan Discharge Discharge Orders: Discharge Patient (ONCE); Ordered 12/31/23 Ordered By: DILIA TINSLEY Activity Restrictions/Additional Instructions: Diagnosis: Pneumonia Diet: Soft diet Activity: as tolerated Follow-up with PCP next week. Repeat labs to recheck white count and liver enzymes. Medications: [facility] Instructions: Pneumonia (GEN) Patient Disposition: HOME WITH FAMILY CARE Prescriptions: New levofloxacin 750 mg tablet 750 mg PO DAILY Qty: 2 0RF Continued acetaminophen [Tylenol] 325 MG tablet 650 mg PO Q4HR PRN (Reason: Analgesia) olanzapine [Zyprexa] 20 MG tablet 20 mg PO BEDTIME paroxetine HCl 30 mg tablet 30 mg PO DAILY divalproex 500 mg tablet extended release 24 hr 500 mg PO BID haloperidol 2 mg tablet 2 mg PO BEDTIME clonazepam 1 mg tablet 1 mg PO TID propranolol 10 mg tablet 10 mg PO 2XD haloperidol 1 mg tablet 1 mg PO DAILY terbinafine HCl 250 mg tablet 250 mg PO DAILY simvastatin 10 mg tablet 10 mg PO QHS Did you review [place] [employer] for ALL controlled substances?: No Discussed opioids are addictive and Narcan is available by prescription or from pharmacy.: No Condition: Fair Referrals: GOPI MONTOYA [Primary Care Provider] - 01/03/24 10:00 am
== END 2023-12-31 11:20 | disposition home or self-care (01) | DRG 189 ==
LOC: ED 09:28 → MEDSURG B 12:26
PROVIDERS: ADMIT Hospitalist; ATTEND Nurse Practitioner Family